=== PATIENT | female | born 1950 | race Caucasian/White ===

== ENCOUNTER → 2023-04-08 14:38 | Outpatient (REF) | payer OTHER, SELFPAY | LOC: HWWDC 14:38 | PROVIDERS: ATTENDING PHYSICIAN Family Medicine | DX: Z12.31 Encounter for screening mammogram for malignant neoplasm of breast (principal); M25.562 Pain in left knee | CPT/HCPCS: 73564; 77063; 77067 ==

== ENCOUNTER 2023-11-11 20:54 | Inpatient (IN) | payer MEDICARE, SELFPAY ==
[2023-11-11] VITALS (11 sets, daily range): BP systolic 72–115; BP diastolic 46–90; BMI 41.3
[2023-11-11 16:34] LABS: Glucose - Point of Care 136 mg/dl (70-99)
--- NOTE | 2023-11-11 16:59 | ED.GENMED ---
History of Present Illness
General
Chief Complaint: Change in Mental Status
Source: patient and family
Exam Limitations: none
Time Seen by Provider: 11/11/23 16:52
History of Present Illness
History of Present Illness:
See MDM
Past History
Past History
ED Past Medical History: HTN, Hypercholesterolemia and Other (Cervical cancer)
Social History
Tobacco: Former smoker
Phy Exam
Physical Exam
Physical Exam:
See MDM
Sepsis
Sepsis Screening
Sepsis Assessment: Severe Sepsis
Sepsis Screening: Hypotension, ARF-Creatinine >2.0 and Sustained Hypotension-SBP <90,MAP<65, or SBP decrease 40mmHg or more
Sepsis Screen
Sepsis Screen: Severe Sepsis
Date: 11/11/23
Time: 16:09
Course
Orders/Labs/Results
Orders:
Orders
11/11/23 16:57
0.9% Sodium Chloride 1000 ml [Nss] 1,000 ml IV BOLUS
Ondansetron Injectable [Zofran] 4 mg IV NOW STA
11/11/23 16:58
CT Head W/o Iv Contrast Urgent
Comment:
Reason For Exam: altered
11/11/23 16:59
TSH Reflex To Free T4 Urgent
11/11/23 17:12
Alcohol Urgent
Complete Blood Count/With Diff Urgent
Comprehensive Metabolic Panel Urgent
Lactic Acid Q4H
Comment: CANCEL 2nd LACTIC ACID IF 1st LACTIC ACID IS LESS THAN 2
11/11/23 18:04
Urinalysis Reflex To Culture Urgent
Date Specimen was Collected: 11/11/23
Time Specimen was Collected: 18:03
Urine Microscopic Reflex Cult Urgent
Urine Culture Urgent
HERMAN Source: U
Specimen Description:
Date Specimen was Collected: 11/11/23
Time Specimen was Collected: 18:03
11/11/23 19:05
0.9% Sodium Chloride 1000 ml [Nss] 1,000 ml IV BOLUS
LevoFLOXacin 500 MG/100 ML [Levaquin] 500 mg in 100 ml IV NOW
Abnormal Lab Results
11/11/23 11/11/23 11/11/23
16:32 17:12 18:04
WBC 14.0 H 10^3/uL
(4.8-10.8)
Hct 36.7 L %
(37.0-47.0)
RDW 16.0 H %
(11.5-14.5)
MPV 11.0 H fL
(7.4-10.4)
Abs Immat Gran (auto) 0.1 H 10^3/uL
(0-0.05)
Absolute Neuts (auto) 11.0 H 10^3/uL
(1.4-6.5)
Absolute Monos (auto) 1.1 H 10^3/uL
(0.1-0.6)
Immature Gran % 0.8 H %
(0-0.5)
Neutrophils % 78.3 H %
(42.2-75.2)
Lymphocytes % 12.5 L %
(20.5-51.1)
Sodium 132 L mmol/L
(135-145)
Chloride 95 L mmol/L
(98-107)
Carbon Dioxide 15 L mmol/L
(22-30)
BUN 58 H mg/dl
(7-17)
Creatinine 3.4 H mg/dL
(0.6-1.0)
Glucose 145 H mg/dl
(70-99)
AST 68 H U/L
(14-36)
ALT 54 H U/L
(0-35)
Alkaline Phosphatase 344 H U/L
(38-126)
Total Protein 5.9 L g/dl
(6.3-8.2)
Albumin 3.4 L g/dl
(3.5-5.0)
Urine Ketones Trace A
(Negative)
Ur Occult Blood Reflex 4+ A
(Negative)
Leukocyte Esterase Rfl 2+ A
(Negative)
Urine WBC (Reflex) >100 A /HPF
(0-5)
Urine Albumin (Reflex) 2+ A
(Neg - Trace)
POC Glucose 136 H mg/dl
(70-99)
11/11/23 17:12
11/11/23 17:12
Vital Signs
Initial and Last Documented VS:
Initial Vital Signs
Temp Pulse Resp BP Pulse Ox
97.6 F 87 24 96/47 97
11/11/23 16:30 11/11/23 16:30 11/11/23 16:30 11/11/23 16:30 11/11/23 16:30
Last Documented Vital Signs
Temp Pulse Resp BP Pulse Ox
97.6 F 82 18 72/57 98
11/11/23 16:30 11/11/23 18:30 11/11/23 18:30 11/11/23 18:00 11/11/23 18:30
MDM/Problems Addressed
Differential Diagnosis Includes:
HPI and MDM Narrative:
73-year-old female presenting for evaluation of altered mental status. Apparently, this has progressed over the past week. When she arrived, patient is lying in bed with her mouth open and eyes closed. The initial triage note indicated that the
patient will keep her eye open. When I spoke to the patient, she is able to keep her eyes open and respond to questions appropriately. She is clinically dehydrated. Her medicines include gabapentin and lorazepam but she denies overdose. Daughter
at bedside states this is abnormal behavior for her. Will obtain CT head and will obtain basic blood work and urinalysis. Will provide IV fluids
Physical exam
General: Fatigue, sleepy
HEENT: protecting airway. Dry mucous membranes
Neck: supple
CV: No evidence of cyanosis. Regular rate and rhythm. Lungs clear
Resp: No accessory muscle use
Abd: Non-distended
Extremities: No deformities
Neuro: alert. Sleepy but answering questions appropriately. Moving all 4 extremities. No aphasia
Psych: Normal affect
Skin: Intact
Problems Addressed including Acute and Chronic Conditions affecting care:
1. Altered mental status
Acuity: acute
Prognosis: stable
Details: Will obtain CT head and basic blood work including urinalysis
2. Dehydration
Acuity: acute
Prognosis: stable
Details: Will give IV fluids
3. UTI
Acuity: acute
Prognosis: unstable
Details: Will start IV Levaquin
Updates
Blood pressure remains to be hypotensive. Will continue IV fluids with concern for severe sepsis. Patient placed on 30 cc/kg of IV fluids. Urine appears to be infected. Patient started on Levaquin
Differential Diagnosis (but not limited to): Stroke, dehydration, UTI
Testing considered: Chest x-ray
Drug therapy (if applicable): OTC meds, please see d/c instruction regarding Rx drugs
Amount and/or Complexity of Data Reviewed
Clinical info obtained from: Patient. Daughter at bedside indicating worsening symptoms for the past week
External data reviewed: N/A
Labs I independently reviewed (but not limited to): Elevated creatinine
Radiology: The CT scan was personally and independently reviewed. In addition, official CT report reviewed.
Pulse Ox: not hypoxic
EKG independently reviewed: N/A
Assistant Professor Of Nursing: N/A
Critical Care: the high probability of a clinically significant, sudden or life threatening deterioration of the cardiovascular system(s) required my full and direct attention, intervention and personal management. The aggregate critical care time
was 35 minutes. This time is in addition to time spent performing reported procedures but includes the following:
[x] Data Review and interpretation
[x] Patient assessment and monitoring of vital signs
[x] Documentation
[x] Medication orders and management
Risk of Complication:
Social Determinants of health: Good social support
Discussed with other providers: Hospitalist
Escalation of Care includes Admit/Obs: Given the altered mental status and concern for sepsis, will start antibiotics and admit
Occasional wrong word or 'sound a like' substitutions may have occurred due to the inherent limitations of voice recognition software. Read the chart carefully and recognize, using context, where substitutions have occurred.
*Critical Care Note
Total Time (30-74mins, 75-104mins- exclusive of procedures): 35 min
ED Attending Note
-
Portions of this chart may have been created with voice recognition software.� Occasional wrong word or��sound alike� substitutions may have occurred due to the inherent limitations of voice recognition software.
Discharge Plan
Departure
Patient Disposition: Admit
Date of Disposition: 11/11/23
Time of Disposition: 19:18
Admit to: IMU
Presentation/result/management discussed w/ accepting MD/DO: Hospitalist
Discharge Problem:
Sepsis
Prescriptions:
No Action
ibuprofen [Advil Liqui-Gel] 200 mg Capsule
400 mg PO Q6HPRN PRN (Reason: mild pain)
valacyclovir 500 mg Tablet
500 mg PO DAILY
lorazepam 0.5 mg Tablet
0.5 mg PO BIDPRN PRN (Reason: anxiety)
gabapentin 300 mg Capsule
300 mg PO TIDPRN PRN (Reason: moderate pain)
Patient Comments:
11/11/23: Patient has old bottle from 2021 that she used recently, per family.
omeprazole 20 mg Capsule,Delayed Release(Dr/Ec)
20 mg PO DAILY
albuterol sulfate 90 mcg/actuation Hfa Aerosol Inhaler
2 puff INHALATION R Q6HPRN PRN (Reason: sob)
ezetimibe 10 mg Tablet
10 mg PO DAILY
rosuvastatin 10 mg Tablet
10 mg PO DAILY
duloxetine 60 mg Capsule,Delayed Release(Dr/Ec)
60 mg PO DAILY
amlodipine-olmesartan 5-40 mg Tablet
1 tab PO DAILY
Referrals:
UNKNOWN,NO INTERVIEW [Family Provider] -
Interventions
Interventions:
*Risk Screen - Suicide Last Done: 11/11/23 17:21
*General Assessment Last Done: 11/11/23 17:21
*Neglect/Abuse Screening Last Done: 11/11/23 17:21
ED- Fall Risk Assessment Last Done: 11/11/23 17:17
*ED COVID-19 Vaccine History Last Done: 11/11/23 17:21
ED- Pulmonary Assessment Last Done: 11/11/23 17:17
ED- Neurological Assessment Last Done: 11/11/23 18:29
ED- Cardiac Assessment Last Done: 11/11/23 17:17
ED Swallowing Screen Last Done: 11/11/23 18:30
Discharge Date and Time
Print Language: MONGOLIAN
[2023-11-11] MEDS: NSS 1000 IV ×3 (17:09→21:12)
[2023-11-11] MEDS: ZOFRAN 4 MG IV (17:10)
[2023-11-11 17:26] LABS: % Basophils 0.5 % (0-2); % Eosinophils 0.3 % (0-6); % Immature Granulocytes 0.8 % (0-0.5); % Lymphocytes 12.5 % (20.5-51.1); % Monocytes 7.6 % (1.7-9.3); % Neutrophils 78.3 % (42.2-75.2); Absolute Basophils 0.1 10^3/uL (0-0.2); Absolute Immature Granulocytes 0.1 10^3/uL (0-0.05); Absolute Lymphocytes 1.8 10^3/uL (1.2-3.4); Absolute Monocytes 1.1 10^3/uL (0.1-0.6); Hematocrit 36.7 % (37.0-47.0); Hemoglobin 12.7 g/dL (12.0-16.0); Mean Corp Hgb Conc. 34.6 g/dL (33.0-37.0); Mean Corpuscular Hgb 29.6 pg (27.0-31.0); Mean Corpuscular Volume 85.5 fL (81.0-99.0); Nucleated Red Blood Cells % 0 %; Platelet Count 239 10^3/uL (130-400); Red Blood Cell Count 4.29 10^6/uL (4.20-5.40)
[2023-11-11 17:35] LABS: ALT (SGPT) 54 U/L (0-35); AST (SGOT) 68 U/L (14-36); Albumin 3.4 g/dl (3.5-5.0); Alkaline Phosphatase 344 U/L (38-126); Blood Urea Nitrogen 58 mg/dl (7-17); Calcium 8.6 mg/dl (8.4-10.2); Carbon Dioxide 15 mmol/L (22-30); Chloride 95 mmol/L (98-107); Glucose 145 mg/dl (70-99); Lactic Acid 1.9 mmol/L (0.7-2.0); Potassium 4.2 mmol/L (3.5-5.1); Sodium 132 mmol/L (135-145); Total Bilirubin 0.8 mg/dl (0.2-1.3); Total Protein 5.9 g/dl (6.3-8.2); eGFR 13.78
[2023-11-11 17:38] LABS: Alcohol None Detected
[2023-11-11 18:14] LABS: Urine Albumin 2+ (Neg - Trace); Urine Bilirubin Negative (Negative); Urine Character Very Cloudy (Clear); Urine Color Yellow; Urine Glucose Negative (Negative); Urine Ketone Trace (Negative); Urine Leukocyte 2+ (Negative); Urine Nitrite Negative (Negative); Urine Occult Blood 4+ (Negative); Urine Specific Gravity 1.015 (<1.030); Urine Urobilinogen 1+ (Neg - 1+)
[2023-11-11 18:46] LABS: Urine White Cell >100 /HPF (0-5)
[2023-11-11] MEDS: LEVAQUIN 100 IV (19:08)
--- NOTE | 2023-11-11 19:19 | HPS.HSE ---
Family Physician
-
Family Physician: NO INTERVIEW UNKNOWN
Chief Complaint
-
Altered mental status
History of Present Illness
This is a 73-year-old female presenting for evaluation of altered mental status.
Patient apparently had GI symptoms last week. She reports nausea vomiting and occasional diarrhea weight bilateral upper quadrant abdominal discomfort. She was seen by physician and told she had gastroenteritis which will improve in a few days.
She was told to hydrate with electrolyte containing fluids. She was able to tolerate fluids but she was not eating a regular diet. She apparently was in the state of health for the next 4 days. However this a.m. the patient arose and was
confused. She was making phone calls that were meaningless. And apparently she had a fall but she does not describe exactly how. She hit the side of her head on a bedpost. She reports ongoing incontinence for about 1 week. She denies dysuria.
She denies flank pain. She reports chills but denies any fevers. She complained of some shortness of breath but denies any cough.
She continues to take her usual medications including 400 mg of ibuprofen 4 times a day, gabapentin and lorazepam. She denies any antihypertensive use. Last use of alcohol was over 1 week ago. She usually drinks about 3 drinks of alcohol daily.
She denies any tobacco use.
In the emergency department the patient was afebrile, she was hypotensive with blood pressure of 72/57, pulse 82 respiratory rate of 18.
CT of the head was negative.
WBC was 14,000 with normal hemoglobin and platelet count. Chemistry is notable for a sodium of 132, bicarb of 15, BUN of 58 and a creatinine of 3.4. LFTs with mild abnormalities of AST 68 ALT 54 and alk phos 342. Normal bilirubin. Lactic acid is
1.9. Urinalysis was positive for pyuria bacteriuria
Medical History
Past Medical History
Past Medical History: Reports Asthma, GERD and Psychiatric
Additional Past Medical History:
Liver hemangioma
Past Surgical History: Reports None
Social History
Tobacco: Non-smoker
Alcohol: Daily
Drug: None
Personal:
Living: With Family
Employment: Not Employed
Family History
Family History: Not pertinent
Allergies / Home Medications
Allergies reflects when Allergies were last updated in [facility].
Home Medications with original date entered in [facility]
Allergy/Medication List:
Allergies
Allergy/AdvReac Type Severity Reaction Status Date / Time
No Known Allergies Allergy Verified 11/11/23 16:50
Home Medications
albuterol sulfate 90 mcg/actuation aerosol inhaler 2 puff inhalation R Q6HPRN PRN sob 11/11/23
amlodipine 5 mg-olmesartan 40 mg tablet 1 tab PO DAILY 11/11/23
duloxetine 60 mg capsule,delayed release 60 mg PO DAILY 11/11/23
ezetimibe 10 mg tablet 10 mg PO DAILY 11/11/23
gabapentin 300 mg capsule 300 mg PO TIDPRN PRN moderate pain 11/11/23
ibuprofen 200 mg capsule (Advil Liqui-Gel) 400 mg PO Q6HPRN PRN mild pain 11/11/23
lorazepam 0.5 mg tablet 0.5 mg PO BIDPRN PRN anxiety 11/11/23
omeprazole 20 mg capsule,delayed release 20 mg PO DAILY 11/11/23
rosuvastatin 10 mg tablet 10 mg PO DAILY 11/11/23
valacyclovir 500 mg tablet 500 mg PO DAILY 11/11/23
Review of Systems
-
History Source: Patient and Family
Constitutional: Reports Fatigue and Sleep Disturbance
EENT: Reports No Symptoms
Respiratory: Reports No Symptoms
Cardiac: Reports No Symptoms
Abdomen/GI: Reports Abdominal Pain and Nausea
: Reports Incontinence
Musculoskeletal: Reports No Symptoms
Skin: Reports No Symptoms
Neurological: Reports Weakness
Endocrine: Reports No Symptoms
Hematologic/Lymphatic: Reports No Symptoms
Psych: Reports No Symptoms
Physical Exam
Vital Signs
Vital Signs
Temp Pulse Resp BP Pulse Ox
97.6 F 82 18 72/57 98
11/11/23 16:30 11/11/23 18:30 11/11/23 18:30 11/11/23 18:00 11/11/23 18:30
Physical Exam
General: No Apparent Distress
HEENT: NormoCephalic, Anicteric, Moist mucous membranes, Atraumatic and PERRLA
Respiratory: Clear
Cardiac: S1/S2 and Regular Rhythm
Breast: Deferred by me
GI: Soft, Non Distended, Normal Bowel Sounds and Tender
Rectal: Deferred by Provider
Genito-urinary: Deferred by me
Musculoskeletal: No Clubbing, No Cyanosis and No Edema
Skin: Warm
Neuro: AO x 3
Hematologic/Lymphatic: No Lymphadenopathy
Psych: Calm
Laboratory Results
-
11/11/23 17:12
11/11/23 17:12
Laboratory Results
Lactic Acid Cancelled 11/11/23 21:00
Total Bilirubin 0.8 mg/dl (0.2-1.3) 11/11/23 17:12
AST 68 U/L (14-36) H 11/11/23 17:12
ALT 54 U/L (0-35) H 11/11/23 17:12
Alkaline Phosphatase 344 U/L (38-126) H 11/11/23 17:12
Data Reviewed
-
CT Scan: Report Reviewed by me
Medical Tests (Nuc Med, Echo, EKG etc): Report Reviewed by me
Lab Data: Labs Reviewed by me
Old Records: Reviewed
Impression/Plan
-
IMPRESSION:
73-year-old with past medical history of asthma, hyperlipidemia, chronic pain presents to the emergency department after a prodromal gastrointestinal illness with altered mental status and hypotension. Had urinary frequency. Patient was found to
have a positive UA and leukocytosis. IV acid was normal. She was hypotensive to 70 systolic. She is awake alert and oriented x 3. Exam was nonfocal. CT of the head was negative.
PLAN:
Sepsis -patient with mixture of urosepsis unlikely recent dehydration. +u/a, leukocytosis and AMS. Responding to boluses of IV fluids.
- admit to imu
- continue iv fluids
- pressors to keep MAP > 65
- blood cultures, urine cultures
- check sepsis procal
- iv ceftriaxone
KERRI - Cr 3.4. Unknown baseline but no known prior h/o CKD. No oliguria or obstruction. BUN/Cr < 20. Hypotensive and on NSAIDs. High chance of ATN
- IV fluids, keep MAP > 65
- hold gabapentin
- hold nsaids
- renal u/s
- consider Nephrology consult if persistently elevated Cr.
Transaminitis - H/O large liver hemangioma with chronic abdominal pain. No known parenchymal liver disease
- abd u/s to eval stones, liver parenchyma and ascites
Pain control and antiemetics
DVT PPX - heparin sq
Code Status - Full Code
[2023-11-11] MEDS: DILAUDID 0.25 MG IV (21:13)
--- NOTE | 2023-11-11 22:12 | PTCARENOTE ---
Patient arrived to room 3352 w/ ED RN. 1L bolus infusing. Jane, daughter, at bedside assisting with admission info. cell phone# [phone] if needed. CHG done. Left side of abd with MASD. Right hip with purple bruise that is hard with small
abrasion. cleansed perineum and placed purewick. Pt had a fall earlier today per daughter. BPs improving, 115/90. Pt drowsy and confused. Recently received IV dilaudid for abd pain. Denies any pain at this time. Meds sent home. Oriented to room and
use of the call chávez. Pt able to drink some water w/o issues. Bed alarm set for safety. Call chávez left within reach.
[2023-11-11] MEDS: LR 1000 IV (22:30)
[2023-11-11] MEDS: ROCEPHIN 1000 MG IV (22:31)
[2023-11-11] MEDS: STERILE WATER FOR INJECTION 10 ML IV (22:31)
[2023-11-11] MEDS: FLUSH (NSS) 10 FLUSH IV ×4 (22:34→22:35)
[2023-11-11] MEDS: ATIVAN 0.5 MG PO (22:58)
--- NOTE | 2023-11-11 23:04 | PTCARENOTE ---
Patient started taking off gown, tele leads, and pulling at IV line. Pt confused and yelling for Tyrese and shouted 'who are you people'. Re-oriented pt to time, place and situation. Pt states 'I am not in the hospital' and continues to take off tele
leads. Pt attempting to sit up and put leg on side of bed. Pt made aware we are here to help her and if she doesn't listen she will be restrained. Pt continued to be defiant. Bilateral wrist restraints placed. PRN Ativan given. Pt made aware she
needs to calm down before we can take off the restraints. Pt stated 'I will take a nap now'. NICHOLAS Das made aware of the entire situation.
[2023-11-11] MEDS: HEPARIN 5000 UNITS SC (23:22)
[2023-11-12] VITALS (12 sets, daily range): BP systolic 90–129; BP diastolic 54–76; BMI 41.4
[2023-11-12 00:10] LABS: Blood Urea Nitrogen 58 mg/dl (7-17); Calcium 7.3 mg/dl (8.4-10.2); Carbon Dioxide 15 mmol/L (22-30); Chloride 100 mmol/L (98-107); Estimated Creatinine Clearance 18 ml/min; Glucose 94 mg/dl (70-99); Potassium 3.9 mmol/L (3.5-5.1); Sodium 134 mmol/L (135-145); eGFR 16.68
--- NOTE | 2023-11-12 01:32 | PTCARENOTE ---
Patient calling out for Williams (significant other). Bilateral wrist restraints remain in place, Q2 hr checks. Pt re-oriented again. Pt denies being in the hospital and says she wants to go home. Med sitter placed at bedside for extra safety
precaution.
[2023-11-12 04:41] LABS: Hematocrit 30.5 % (37.0-47.0); Hemoglobin 10.4 g/dL (12.0-16.0); Mean Corp Hgb Conc. 34.1 g/dL (33.0-37.0); Mean Corpuscular Hgb 29.6 pg (27.0-31.0); Mean Corpuscular Volume 86.9 fL (81.0-99.0); Mean Platelet Volume 10.6 fL (7.4-10.4); Platelet Count 215 10^3/uL (130-400); Red Blood Cell Count 3.51 10^6/uL (4.20-5.40); Red Cell Dist. Width 16.1 % (11.5-14.5); White Blood Cell Count 12.6 10^3/uL (4.8-10.8)
[2023-11-12 05:22] LABS: Cortisol, Random 24.4 ug/dl
[2023-11-12 05:23] LABS: ALT (SGPT) 44 U/L (0-35); AST (SGOT) 47 U/L (14-36); Albumin 2.7 g/dl (3.5-5.0); Alkaline Phosphatase 240 U/L (38-126); Blood Urea Nitrogen 56 mg/dl (7-17); Calcium 7.2 mg/dl (8.4-10.2); Carbon Dioxide 14 mmol/L (22-30); Chloride 100 mmol/L (98-107); Estimated Creatinine Clearance 20 ml/min; Glucose 86 mg/dl (70-99); Potassium 3.8 mmol/L (3.5-5.1); Sodium 134 mmol/L (135-145); Total Bilirubin 0.5 mg/dl (0.2-1.3); Total Protein 5.2 g/dl (6.3-8.2); eGFR 18.18
--- NOTE | 2023-11-12 05:42 | PTCARENOTE ---
Critical lab: C02 14. Reported to NICHOLAS Bean
--- NOTE | 2023-11-12 07:39 | W.PN.HOSP.TC ---
Today's Communication/Plan
-
see A/P
Assessment / Plan
Assessment / Plan
HPI: 73-year-old with past medical history of asthma, hyperlipidemia, chronic pain presented to the emergency department after a prodromal gastrointestinal illness with altered mental status and hypotension. Also had urinary frequency. Patient was
found to have a positive UA and leukocytosis. She was hypotensive to 70 systolic.
Patient apparently had GI symptoms last week. She was seen by physician and told she had gastroenteritis which will improve in a few days. She was told to hydrate with electrolyte containing fluids. She was able to tolerate fluids but she was not
eating a regular diet. She apparently was in the state of health for the next 4 days. However on DOA, the patient arose and was confused. She was making phone calls that were meaningless. And apparently she had a fall but she does not describe
exactly how. She hit the side of her head on a bedpost. She reports ongoing incontinence for about 1 week.
She continues to take her usual medications including 400 mg of ibuprofen 4 times a day, gabapentin and lorazepam. She denies any antihypertensive use. 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 She usually drinks about 3 drinks of alcohol daily.
A/P:
# Severe Sepsis POA likely 2/2 UTI
# Acute metabolic encephalopathy 2/2 UTI
BP responded to IVF boluses, improved from 70/50 to 100/60, cont maintenance IVF with bicarb
Follow urine culture
Continue iv ceftriaxone
Of note, CT head from admission No acute intracranial abnormality.
PT OT eval when able
# KERRI likely prerenal
# anion gap Metabolic acidosis
Cr 3.4 on admission, today 2.7, Unknown baseline but no known prior h/o CKD.
Cont IVF with bicarb
avoid NSAIDs.
hold gabapentin
Abd US ordered
Consider Nephrology consult if persistently elevated Cr.
# Transaminitis, suspect reactive
# H/O large liver hemangioma with chronic abdominal pain.
No known parenchymal liver disease
Abd US ordered, follow up
# Pain control and antiemetics
DVT PPX - heparin sq
Code Status - Full Code
DW RN
updated pt's SO Boone (only contact listed) on the phone
total time 51 min
Anticipated Discharge: > 48 hours
Subjective/Interval History
-
Date of Service: November 12, 2023
Objective Data
-
Labs:
Laboratory Results
11/11/23 11/12/23
23:24 04:25
WBC 12.6 H
Hgb 10.4 L
Hct 30.5 L
Plt Count 215
Sodium 134 L 134 L
Potassium 3.9 3.8
Chloride 100 100
Carbon Dioxide 15 L 14 L*
BUN 58 H 56 H
Creatinine 2.9 H 2.7 H
Glucose 94 86
Calcium 7.3 L 7.2 L
Total Bilirubin 0.5
AST 47 H
ALT 44 H
Alkaline Phosphatase 240 H
Vital Signs:
Vital Signs
Temp Pulse Resp BP Pulse Ox
36.4 C 93 17 108/59 98
11/12/23 04:21 11/12/23 06:02 11/12/23 06:02 11/12/23 06:02 11/12/23 06:02
I&O
11/11/23 11/12/23 11/13/23
06:59 06:59 06:59
Intake Total 401 / 401
Output Total 125 / 125
Balance 276 / 276
Review of Systems
-
Unable to obtain full review of systems at this time due to: Acuity
Physical Exam
-
General: Well Developed, Well Nourished, No Apparent Distress, Comfortable, Conversant, Morbidly Obese and Other (in restraints); Negative Respiratory Distress
HEENT: Normocephalic, Atraumatic, Nose Appears Normal and Ears Appear Normal; Negative Oxygen
Respiratory: Clear to Auscultation and Non Labored Respirations; Negative Accessory Resp Muscle Use
Cardiac: Regular Rhythm and S1/S2
GI: Soft, Nontender, Nondistended and Normal Bowel Sounds
Skin: Warm and Dry
Neuro: Awake
Psych: Calm and Confused
Data Reviewed
-
CT Scan: Report Reviewed by me
Labs: Labs Reviewed by me
[2023-11-12] MEDS: CALCIUM GLUCONATE 100 IV (08:18)
--- NOTE | 2023-11-12 08:43 | PTCARENOTE ---
Assumed care of pt from night RN, pt oriented to self only, agitated and combative at times. Refusing all PO medications at this time. Unable to obtain Covid or Flu swab as pt began thrashing around and attempting to kick staff. Attempted to
redirect without success. B/L soft restraints remain in place for pt safety. Calcium Gluconate infusing at this time as well as IVF. Repositioned in bed. NPO at this time for Abdominal U/S. Will continue to monitor through shift.
[2023-11-12] MEDS: HEPARIN SC (09:05)
[2023-11-12] MEDS: CYMBALTA DELAYED RELEASE PO (09:05)
[2023-11-12] MEDS: PROTONIX PO (09:06)
[2023-11-12] MEDS: SODIUM BICARBONATE 1075 MEQ IV ×2 (09:08→20:39)
[2023-11-12 09:57] LABS: COVID-19 Antigen Negative (Negative)
--- NOTE | 2023-11-12 10:05 | PTCARENOTE ---
Pt daughter at bedside, pt agreeable to Covid and Flu swabs. Samples obtained and sent to lab. Results are negative for both.
[2023-11-12] MEDS: DESENEX/MITRAZOL/ZEASORB 1 APPLIC TOPICAL ×2 (11:08→23:02)
--- NOTE | 2023-11-12 15:08 | CM ---
manager employee benefits reviewed patient's chart, patient is currently in restraints and has med sitter. Patient lives with her significant other Boone (Tyrese) in a 2 story home with 3 steps to enter, patient is independent with adl's and ambulation, no dme.
Pharmacy: [facility] in [place]
Plan; Home when stable, will follow for any needs that may develop.
[2023-11-12] MEDS: HEPARIN 5000 UNITS SC ×2 (16:50→23:35)
[2023-11-12] MEDS: TYLENOL 650 MG PO (20:28)
[2023-11-12 20:56] LABS: Hepatitis C Antibody Negative (Negative)
[2023-11-12] MEDS: FLUSH (NSS) 1 FLUSH IV ×3 (23:02→23:18)
[2023-11-12] MEDS: ROCEPHIN 1000 MG IV (23:04)
[2023-11-12] MEDS: STERILE WATER FOR INJECTION 10 ML IV (23:04)
[2023-11-12] MEDS: ATIVAN 0.5 MG PO (23:06)
[2023-11-12] MEDS: ROXICODONE 5 MG PO (23:44)
[2023-11-13] VITALS (11 sets, daily range): BP systolic 106–126; BP diastolic 53–73; PULSE 94–99; O2SAT 96; BMI 41.3
--- NOTE | 2023-11-13 01:22 | PTCARENOTE ---
Assumed care of patient overnight. Received report from dayshift RN. Pt oriented to time, place, and person but forgetful at times. Pt can be agitated at times. Pt normal sinus on tele. Respirations even and unlabored, 96% on room air. Pt requests
PRN ativan for anxiety, and Leann for severe pain. Pt reports having 10/10 pain to RUQ. Pt is now sleeping and appears to be comfortable with no more complaints of pain. Pt has purewick in and voiding appropriately. B/L soft wrist restraints off the
patient currently, pt is not pulling out tube/lines. Turning pt frequently. Call chávez within reach. Medsitter at bedside.
[2023-11-13 04:31] LABS: Hematocrit 26.9 % (37.0-47.0); Hemoglobin 9.4 g/dL (12.0-16.0); Mean Corp Hgb Conc. 34.9 g/dL (33.0-37.0); Mean Corpuscular Hgb 29.6 pg (27.0-31.0); Mean Corpuscular Volume 84.6 fL (81.0-99.0); Mean Platelet Volume 10.3 fL (7.4-10.4); Platelet Count 240 10^3/uL (130-400); Red Blood Cell Count 3.18 10^6/uL (4.20-5.40); Red Cell Dist. Width 16.3 % (11.5-14.5); White Blood Cell Count 11.7 10^3/uL (4.8-10.8)
[2023-11-13 04:56] LABS: ALT (SGPT) 42 U/L (0-35); AST (SGOT) 42 U/L (14-36); Albumin 2.6 g/dl (3.5-5.0); Alkaline Phosphatase 261 U/L (38-126); Blood Urea Nitrogen 42 mg/dl (7-17); Calcium 7.8 mg/dl (8.4-10.2); Carbon Dioxide 18 mmol/L (22-30); Chloride 104 mmol/L (98-107); Estimated Creatinine Clearance 31 ml/min; Glucose 86 mg/dl (70-99); Potassium 3.5 mmol/L (3.5-5.1); Sodium 139 mmol/L (135-145); Total Bilirubin 0.5 mg/dl (0.2-1.3); Total Protein 4.9 g/dl (6.3-8.2); eGFR 31.66
[2023-11-13 05:05] LABS: Magnesium 2.3 mg/dl (1.6-2.3)
[2023-11-13] MEDS: SODIUM BICARBONATE IV (06:11)
[2023-11-13] MEDS: DESENEX/MITRAZOL/ZEASORB 1 APPLIC TOPICAL ×2 (08:06→20:30)
[2023-11-13] MEDS: NSS 1000 IV ×2 (08:06→18:33)
[2023-11-13] MEDS: HEPARIN 5000 UNITS SC (08:10)
[2023-11-13] MEDS: PROTONIX 40 MG PO (08:10)
[2023-11-13] MEDS: CYMBALTA DELAYED RELEASE 60 MG PO (08:10)
--- NOTE | 2023-11-13 08:19 | W.PN.HOSP.TC ---
Today's Communication/Plan
-
see A/P
Assessment / Plan
Assessment / Plan
HPI: 73-year-old with past medical history of asthma, hyperlipidemia, chronic pain presented to the emergency department after a prodromal gastrointestinal illness with altered mental status and hypotension. Also had urinary frequency. Patient was
found to have a positive UA and leukocytosis. She was hypotensive to 70 systolic.
Patient apparently had GI symptoms last week. She was seen by physician and told she had gastroenteritis which will improve in a few days. She was told to hydrate with electrolyte containing fluids. She was able to tolerate fluids but she was not
eating a regular diet. She apparently was in the state of health for the next 4 days. However on DOA, the patient arose and was confused. She was making phone calls that were meaningless. And apparently she had a fall but she does not describe
exactly how. She hit the side of her head on a bedpost. She reports ongoing incontinence for about 1 week.
She continues to take her usual medications including 400 mg of ibuprofen 4 times a day, gabapentin and lorazepam. She denies any antihypertensive use. 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 She usually drinks about 3 drinks of alcohol daily.
A/P:
# Severe Sepsis POA likely 2/2 UTI
# Acute metabolic encephalopathy 2/2 UTI
BP responded to IVF boluses, improved from 70/50 to 100/60, cont maintenance IVF with bicarb
urine culture positive for E coli
deescalate ceftriaxone to Ancef
Of note, CT head from admission No acute intracranial abnormality.
MS improved, off restraint. She is AOX3
PT OT eval when able
# KERRI likely prerenal, improving
# anion gap Metabolic acidosis, improving
Cr 3.4 on admission, today 1.7, unknown baseline but no known prior h/o CKD.
Cont IVF with bicarb
avoid NSAIDs.
hold gabapentin
Abd US: No hydronephrosis.
# Hypokalemia
replete K
# Transaminitis, suspect reactive
# H/O large liver hemangioma with chronic abdominal pain.
No known parenchymal liver disease
Abd US noted increased echogenicity in the liver, compatible with underlying hepatocellular disease, which most commonly relates to fatty infiltration of the liver
# Pain control and antiemetics
DVT PPX - heparin sq
Code Status - Full Code
DW RN
updated pt's SO Boone (only contact listed) on the phone
Anticipated Discharge: 24 - 48 hours
Subjective/Interval History
-
Date of Service: November 13, 2023
Objective Data
-
Labs:
Laboratory Results
11/13/23
04:09
WBC 11.7 H
Hgb 9.4 L
Hct 26.9 L
Plt Count 240
Sodium 139
Potassium 3.5
Chloride 104
Carbon Dioxide 18 L
BUN 42 H
Creatinine 1.7 H
Glucose 86
Calcium 7.8 L
Total Bilirubin 0.5
AST 42 H
ALT 42 H
Alkaline Phosphatase 261 H
Vital Signs:
Vital Signs
Temp Pulse Resp BP Pulse Ox
36.7 C 95 14 107/62 95
11/13/23 04:01 11/13/23 06:00 11/13/23 06:00 11/13/23 06:00 11/13/23 06:00
I&O
11/12/23 11/13/23 11/14/23
06:59 06:59 06:59
Intake Total 401 / 401 2665 / 2665
Output Total 125 / 125 2425 / 2425
Balance 276 / 276 240 / 240
Review of Systems
-
All other systems: Reviewed and negative
Physical Exam
-
General: Well Developed, Well Nourished, No Apparent Distress, Comfortable, Conversant and Morbidly Obese; Negative Respiratory Distress
HEENT: Normocephalic, Atraumatic, Nose Appears Normal and Ears Appear Normal; Negative Oxygen
Respiratory: Clear to Auscultation and Non Labored Respirations; Negative Accessory Resp Muscle Use
Cardiac: Regular Rhythm and S1/S2
GI: Soft, Nontender, Nondistended and Normal Bowel Sounds
Skin: Warm and Dry
Neuro: Awake
Psych: Calm and Intact Judgement/Insight
Data Reviewed
-
CT Scan: Report Reviewed by me
Labs: Labs Reviewed by me
[2023-11-13] MEDS: KCL 40 MEQ PO (08:56)
[2023-11-13] MEDS: TYLENOL 650 MG PO (09:17)
[2023-11-13] MEDS: ANCEF 5 IV ×2 (09:18→18:33)
[2023-11-13] MEDS: ROXICODONE 5 MG PO ×3 (12:19→22:35)
--- NOTE | 2023-11-13 16:44 | CM ---
Chart reviewed. Plan was initially home with no needs, however per PT note this afternoon, pt may need SNF vs. home health. Pt on bed alarm.
CM to follow up in AM to clarify d/c plan.
[2023-11-13] MEDS: HEPARIN SC (18:23)
[2023-11-13] MEDS: FLUSH (NSS) IV ×2 (23:52)
[2023-11-14] MEDS: HEPARIN SC ×3 (00:53→16:00)
[2023-11-14] MEDS: ANCEF 5 IV ×2 (03:08→09:46)
[2023-11-14] MEDS: NSS 1000 IV (03:20)
[2023-11-14] MEDS: ROXICODONE 5 MG PO ×5 (03:29→22:00)
[2023-11-14 03:55] VITALS: BP 109/70
[2023-11-14 07:36] VITALS: BP 134/69
[2023-11-14] MEDS: CYMBALTA DELAYED RELEASE 60 MG PO (08:00)
[2023-11-14] MEDS: PROTONIX 40 MG PO (08:00)
[2023-11-14] MEDS: DESENEX/MITRAZOL/ZEASORB 1 APPLIC TOPICAL ×2 (08:02→20:44)
[2023-11-14 08:55] LABS: ALT (SGPT) 38 U/L (0-35); AST (SGOT) 46 U/L (14-36); Albumin 2.6 g/dl (3.5-5.0); Alkaline Phosphatase 291 U/L (38-126); Blood Urea Nitrogen 21 mg/dl (7-17); Calcium 8.7 mg/dl (8.4-10.2); Carbon Dioxide 24 mmol/L (22-30); Chloride 106 mmol/L (98-107); Estimated Creatinine Clearance 53 ml/min; Glucose 95 mg/dl (70-99); Magnesium 1.8 mg/dl (1.6-2.3); Potassium 4.5 mmol/L (3.5-5.1); Sodium 139 mmol/L (135-145); Total Bilirubin 0.4 mg/dl (0.2-1.3); Total Protein 4.9 g/dl (6.3-8.2); eGFR 59.86
[2023-11-14 09:08] LABS: Hematocrit 28.7 % (37.0-47.0); Hemoglobin 9.7 g/dL (12.0-16.0); Mean Corp Hgb Conc. 33.8 g/dL (33.0-37.0); Mean Corpuscular Hgb 30.3 pg (27.0-31.0); Mean Corpuscular Volume 89.7 fL (81.0-99.0); Mean Platelet Volume 10.3 fL (7.4-10.4); Platelet Count 315 10^3/uL (130-400); Red Cell Dist. Width 17.1 % (11.5-14.5); White Blood Cell Count 12.1 10^3/uL (4.8-10.8)
[2023-11-14] MEDS: TYLENOL 650 MG PO ×2 (09:46→18:07)
--- NOTE | 2023-11-14 09:54 | W.PN.HOSP.TC ---
Today's Communication/Plan
-
see A/P
Cont PT eval
Assessment / Plan
Assessment / Plan
HPI: 73-year-old with past medical history of asthma, hyperlipidemia, chronic pain presented to the emergency department after a prodromal gastrointestinal illness with altered mental status and hypotension. Also had urinary frequency. Patient was
found to have a positive UA and leukocytosis. She was hypotensive to 70 systolic.
Patient apparently had GI symptoms last week. She was seen by physician and told she had gastroenteritis which will improve in a few days. She was told to hydrate with electrolyte containing fluids. She was able to tolerate fluids but she was not
eating a regular diet. She apparently was in the state of health for the next 4 days. However on DOA, the patient arose and was confused. She was making phone calls that were meaningless. And apparently she had a fall but she does not describe
exactly how. She hit the side of her head on a bedpost. She reports ongoing incontinence for about 1 week.
She continues to take her usual medications including 400 mg of ibuprofen 4 times a day, gabapentin and lorazepam. She denies any antihypertensive use. 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 She usually drinks about 3 drinks of alcohol daily.
A/P:
# Severe Sepsis POA likely 2/2 UTI
# Acute metabolic encephalopathy 2/2 UTI
BP responded to IVF
urine culture positive for E coli sensitivity reviewed. Deescalate ceftriaxone to Ancef with plan to DC on Keflex
Of note, CT head from admission showed No acute intracranial abnormality.
MS improved, off restraint. She is somewhat AOX3 but lacks insight
# KERRI likely prerenal, resolved
# anion gap Metabolic acidosis, resolved
Cr 3.4 on admission, today 1.0, unknown baseline but no known prior h/o CKD.
s/p IVF with bicarb
avoid NSAIDs.
hold gabapentin
Abd US: No hydronephrosis.
# Hypokalemia
repleted K
# Transaminitis, suspect reactive
# H/O large liver hemangioma with chronic abdominal pain.
No known parenchymal liver disease
Abd US noted increased echogenicity in the liver, compatible with underlying hepatocellular disease, which most commonly relates to fatty infiltration of the liver
Follow LFT with PCP outpt
# Pain control and antiemetics
DVT PPX - heparin sq
Code Status - Full Code
Dispo: SNF vs HH per PT eval. Family feels that pt would most likely want to be discharged home with HH
DW RN
updated pt's JERMAIN Shook.
Also updated pt's daughter Oneida on the phone [phone]
total time spent 51 min
Anticipated Discharge: 24 - 48 hours
Subjective/Interval History
-
Date of Service: November 14, 2023
Objective Data
-
Labs:
Laboratory Results
11/14/23
07:56
WBC 12.1 H
Hgb 9.7 L
Hct 28.7 L
Plt Count 315 D
Sodium 139
Potassium 4.5 D
Chloride 106
Carbon Dioxide 24
BUN 21 H
Creatinine 1.0
Glucose 95
Calcium 8.7
Total Bilirubin 0.4
AST 46 H
ALT 38 H
Alkaline Phosphatase 291 H
Vital Signs:
Vital Signs
Temp Pulse Resp BP Pulse Ox
36.6 C 98 20 134/69 95
11/14/23 07:36 11/14/23 07:36 11/14/23 07:36 11/14/23 07:36 11/14/23 07:36
I&O
11/13/23 11/14/23 11/15/23
06:59 06:59 06:59
Intake Total 2665 / 2665 480 / 480
Output Total 2425 / 2425 700 / 700
Balance 240 / 240 -220 / -220
Review of Systems
-
All other systems: Reviewed and negative
Physical Exam
-
General: Well Developed, Well Nourished, No Apparent Distress, Comfortable, Conversant and Morbidly Obese; Negative Respiratory Distress
HEENT: Normocephalic, Atraumatic, Nose Appears Normal and Ears Appear Normal; Negative Oxygen
Respiratory: Clear to Auscultation and Non Labored Respirations; Negative Accessory Resp Muscle Use
Cardiac: Regular Rhythm and S1/S2
GI: Soft, Nontender, Nondistended and Normal Bowel Sounds
Skin: Warm and Dry
Neuro: Awake
Psych: Calm and Intact Judgement/Insight (somewhat)
Data Reviewed
-
CT Scan: Report Reviewed by me
Labs: Labs Reviewed by me
[2023-11-14 11:32] VITALS: BP 105/57
[2023-11-14 15:53] VITALS: BP 90/77
[2023-11-14] MEDS: ANCEF 10 IV (18:07)
[2023-11-14 19:55] VITALS: BP 104/63
[2023-11-14] MEDS: ATIVAN 0.5 MG PO (20:42)
[2023-11-14 23:19] VITALS: BP 116/63
[2023-11-15] MEDS: HEPARIN SC ×2 (01:09→09:20)
[2023-11-15] MEDS: ANCEF 10 IV ×3 (02:08→17:48)
[2023-11-15] MEDS: HEPARIN 5000 UNITS SC (02:24)
[2023-11-15 03:15] VITALS: BP 122/77
[2023-11-15] MEDS: ROXICODONE 5 MG PO (06:07)
[2023-11-15 07:30] VITALS: BP 133/75
[2023-11-15 07:48] LABS: Hematocrit 27.7 % (37.0-47.0); Hemoglobin 9.2 g/dL (12.0-16.0); Mean Corp Hgb Conc. 33.2 g/dL (33.0-37.0); Mean Corpuscular Hgb 28.8 pg (27.0-31.0); Mean Corpuscular Volume 86.8 fL (81.0-99.0); Platelet Count 356 10^3/uL (130-400); Red Blood Cell Count 3.19 10^6/uL (4.20-5.40); Red Cell Dist. Width 16.8 % (11.5-14.5); White Blood Cell Count 11.8 10^3/uL (4.8-10.8)
[2023-11-15 08:13] LABS: ALT (SGPT) 36 U/L (0-35); AST (SGOT) 51 U/L (14-36); Albumin 2.6 g/dl (3.5-5.0); Alkaline Phosphatase 321 U/L (38-126); Blood Urea Nitrogen 15 mg/dl (7-17); Calcium 9.1 mg/dl (8.4-10.2); Carbon Dioxide 22 mmol/L (22-30); Chloride 105 mmol/L (98-107); Estimated Creatinine Clearance 59 ml/min; Glucose 104 mg/dl (70-99); Magnesium 1.5 mg/dl (1.6-2.3); Sodium 138 mmol/L (135-145); Total Bilirubin 0.4 mg/dl (0.2-1.3); Total Protein 5.1 g/dl (6.3-8.2); eGFR > 60.00
[2023-11-15] MEDS: PROTONIX 40 MG PO (09:19)
[2023-11-15] MEDS: TYLENOL 650 MG PO ×2 (09:19→23:13)
[2023-11-15] MEDS: ATIVAN 0.5 MG PO (09:19)
[2023-11-15] MEDS: CYMBALTA DELAYED RELEASE 60 MG PO (09:19)
[2023-11-15] MEDS: DESENEX/MITRAZOL/ZEASORB 1 APPLIC TOPICAL ×2 (09:20→20:25)
--- NOTE | 2023-11-15 09:22 | W.PN.HOSP.TC ---
Addendum entered and electronically signed by Dina Junior MD 11/15/23 09:49:
pt states that she's on Valtrex for rash of her upper back.
back examined and no rash seen.
Would stop Valtrex for now
Original Note:
Today's Communication/Plan
-
see A/P
Assessment / Plan
Assessment / Plan
HPI: 73-year-old with past medical history of asthma, hyperlipidemia, chronic pain presented to the emergency department after a prodromal gastrointestinal illness with altered mental status and hypotension. Also had urinary frequency. Patient was
found to have a positive UA and leukocytosis. She was hypotensive to 70 systolic.
Patient apparently had GI symptoms last week. She was seen by physician and told she had gastroenteritis which will improve in a few days. She was told to hydrate with electrolyte containing fluids. She was able to tolerate fluids but she was not
eating a regular diet. She apparently was in the state of health for the next 4 days. However on DOA, the patient arose and was confused. She was making phone calls that were meaningless. And apparently she had a fall but she does not describe
exactly how. She hit the side of her head on a bedpost. She reports ongoing incontinence for about 1 week.
She continues to take her usual medications including 400 mg of ibuprofen 4 times a day, gabapentin and lorazepam. She denies any antihypertensive use. 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 She usually drinks about 3 drinks of alcohol daily.
A/P:
# Severe Sepsis POA likely 2/2 UTI
# Acute metabolic encephalopathy 2/2 UTI
BP responded to IVF
urine culture positive for E coli sensitivity reviewed. Deescalated ceftriaxone to Ancef with plan to DC on Keflex
Of note, CT head from admission showed No acute intracranial abnormality.
MS improved, off restraint. She is somewhat AOX3 but lacks insight
# KERRI likely prerenal, resolved
# anion gap Metabolic acidosis, resolved
Cr 3.4 on admission, today 0.9, unknown baseline but no known prior h/o CKD.
s/p IVF with bicarb
ok to resume gabapentin
Abd US: No hydronephrosis.
# Diffuse Abd pain
check Abd XR for constipation vs possible ileus (pt has been on oxycodone)
stop oxycodone for now
cont Tylenol PRN for pain
# Hypokalemia
repleted K
# Transaminitis, suspect reactive
# H/O large liver hemangioma with chronic abdominal pain.
No known parenchymal liver disease
Abd US noted increased echogenicity in the liver, compatible with underlying hepatocellular disease, which most commonly relates to fatty infiltration of the liver. Family aware.
Follow LFT with PCP outpt
# Recent Shingles
Cont FILLER SHAKER Valtrex
DVT PPX - lovenox SQ
Code Status - Full Code
Dispo: SNF
DW RN
DW pt's daughter Oneida at bedside
total time spent 51 min
Anticipated Discharge: 24 - 48 hours
Subjective/Interval History
-
Date of Service: November 15, 2023
Objective Data
-
Labs:
Laboratory Results
11/15/23
07:09
WBC 11.8 H
Hgb 9.2 L
Hct 27.7 L
Plt Count 356
Sodium 138
Potassium 4.0
Chloride 105
Carbon Dioxide 22
BUN 15
Creatinine 0.9
Glucose 104 H
Calcium 9.1
Total Bilirubin 0.4
AST 51 H
ALT 36 H
Alkaline Phosphatase 321 H
Vital Signs:
Vital Signs
Temp Pulse Resp BP Pulse Ox
37.7 C 98 18 133/75 95
11/15/23 07:30 11/15/23 07:30 11/15/23 07:30 11/15/23 07:30 11/15/23 07:30
I&O
11/14/23 11/15/23 11/16/23
06:59 06:59 06:59
Intake Total 480 / 480 2159
Output Total 700 / 700
Balance -220 / -220 2159
Review of Systems
-
Abdomen/GI: Reports Abdominal Pain (diffuse, but R > L)
Physical Exam
-
General: Well Developed, Well Nourished, No Apparent Distress, Comfortable, Conversant and Morbidly Obese; Negative Respiratory Distress
HEENT: Normocephalic, Atraumatic, Nose Appears Normal and Ears Appear Normal; Negative Oxygen
Respiratory: Clear to Auscultation and Non Labored Respirations; Negative Accessory Resp Muscle Use
Cardiac: Regular Rhythm and S1/S2
GI: Soft, Nondistended, Normal Bowel Sounds and Tender (diffusely, but R > L)
Skin: Warm and Dry
Neuro: Awake
Psych: Calm and Intact Judgement/Insight (somewhat)
Data Reviewed
-
CT Scan: Report Reviewed by me
Ultrasound: Report Reviewed by me (Abd US )
Labs: Labs Reviewed by me
--- NOTE | 2023-11-15 11:07 | CM ---
Addendum entered by Ezra Otto 11/15/23 13:49:
Pt's daughter requested to send a referral to [facility]. A referral to [facility] SNF made.
Original Note:
CM following re: discharge planning.
Reviewed pt's chart, met with pt, spoke to pt's partner Boone over the phone and pt's daughter Oneida at bedside [phone]. pt is requested to add her daughter to contact list.
PT and OT evaluations noted - SNF level of care recommended. Both pt and her family are aware, expressed their agreement. A list of SNFs provided, [facility] and [facility]. A referral to above SNFs made. Awaiting for determination.
D/c plan: [facility] or [facility].
CM will follow to assist pt with discharge to a preferred and accepted SNF.
[2023-11-15 11:37] VITALS: BP 127/70
[2023-11-15] MEDS: MOTRIN 400 MG PO ×2 (13:26→20:22)
[2023-11-15 15:30] VITALS: BP 118/69
[2023-11-15] MEDS: LOVENOX 40 MG SC (17:48)
[2023-11-15 19:55] VITALS: BP 124/76
[2023-11-15] MEDS: NEURONTIN 300 MG PO (20:26)
[2023-11-15 23:17] VITALS: BP 131/71
[2023-11-16] MEDS: ANCEF 10 IV ×3 (02:45→16:55)
[2023-11-16] MEDS: MOTRIN 400 MG PO ×3 (02:54→21:30)
[2023-11-16 03:38] VITALS: BP 137/77
[2023-11-16] MEDS: TYLENOL 650 MG PO ×3 (06:46→17:03)
[2023-11-16 07:35] VITALS: BP 135/79
[2023-11-16 08:18] LABS: Hemoglobin 9.4 g/dL (12.0-16.0); Mean Corp Hgb Conc. 33.6 g/dL (33.0-37.0); Mean Corpuscular Volume 89.5 fL (81.0-99.0); Mean Platelet Volume 9.9 fL (7.4-10.4); Platelet Count 360 10^3/uL (130-400); Red Blood Cell Count 3.13 10^6/uL (4.20-5.40); Red Cell Dist. Width 16.8 % (11.5-14.5); White Blood Cell Count 9.4 10^3/uL (4.8-10.8)
[2023-11-16 08:54] LABS: ALT (SGPT) 23 U/L (0-35); AST (SGOT) 37 U/L (14-36); Albumin 2.6 g/dl (3.5-5.0); Alkaline Phosphatase 256 U/L (38-126); Blood Urea Nitrogen 14 mg/dl (7-17); Calcium 9.4 mg/dl (8.4-10.2); Carbon Dioxide 26 mmol/L (22-30); Chloride 107 mmol/L (98-107); Estimated Creatinine Clearance 66 ml/min; Glucose 97 mg/dl (70-99); Potassium 4.4 mmol/L (3.5-5.1); Sodium 142 mmol/L (135-145); Total Bilirubin 0.3 mg/dl (0.2-1.3); eGFR > 60.00
[2023-11-16] MEDS: CYMBALTA DELAYED RELEASE 60 MG PO (09:51)
[2023-11-16] MEDS: BENICAR 40 MG PO (09:51)
[2023-11-16] MEDS: NORVASC 5 MG PO (09:51)
[2023-11-16] MEDS: PROTONIX 40 MG PO (09:51)
[2023-11-16] MEDS: DESENEX/MITRAZOL/ZEASORB 1 APPLIC TOPICAL ×2 (09:58→21:34)
[2023-11-16] MEDS: ATIVAN 0.5 MG PO (10:29)
[2023-11-16 11:28] VITALS: BP 152/72
--- NOTE | 2023-11-16 11:35 | PTCARENOTE ---
Patient c/o of R knee tenderness recalls 'banging it' at unknown time. Unable to raise leg without reports of 10/10 pain. +pulses, RLE warm, no edema, no bruising noted. Tylenol administered, ice applied. Hospitalist aware.
--- NOTE | 2023-11-16 13:58 | W.PN.HOSP.TC ---
Today's Communication/Plan
-
HIDA scan
cont abx
Assessment / Plan
Assessment / Plan
HPI: 73-year-old with past medical history of asthma, hyperlipidemia, chronic pain presented to the emergency department after a prodromal gastrointestinal illness with altered mental status and hypotension. Also had urinary frequency. Patient was
found to have a positive UA and leukocytosis. She was hypotensive to 70 systolic.
A/P:
# Severe Sepsis POA likely 2/2 UTI
# Acute metabolic encephalopathy 2/2 UTI
BP responded to IVF
urine culture positive for E coli sensitivity reviewed. Deescalated ceftriaxone to Ancef with plan to DC on Keflex
Of note, CT head from admission showed No acute intracranial abnormality.
MS improved, off restraint. She is somewhat AOX3 but lacks insight
# KERRI likely prerenal, resolved
# anion gap Metabolic acidosis, resolved
Cr 3.4 on admission, today 0.9, unknown baseline but no known prior h/o CKD.
s/p IVF with bicarb
ok to resume gabapentin
Abd US: No hydronephrosis.
# RUQ tenderness
-RUQ unremarkable for acute pathology
-since high suspicion - ordered HIDA scan; NPO after MN
-cont Tylenol PRN for pain
#Hypokalemia
repleted K
# Transaminitis
# H/O large liver hemangioma with chronic abdominal pain.
No known parenchymal liver disease
Abd US noted increased echogenicity in the liver, compatible with underlying hepatocellular disease, which most commonly relates to fatty infiltration of the liver. Family aware.
Follow LFT with PCP outpatient
HIDA scan as above
# Recent Shingles
Rash resolved
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
DVT PPX - lovenox SQ
Code Status - Full Code
Dispo: SNF
DW RN
DW pt's daughter Oneida at bedside
total time spent 52 min
Anticipated Discharge: 24 - 48 hours
Subjective/Interval History
-
Date of Service: November 16, 2023
Right upper quadrant tenderness is present
Objective Data
-
Labs:
Laboratory Results
11/16/23
07:37
WBC 9.4
Hgb 9.4 L
Hct 28.0 L
Plt Count 360
Sodium 142
Potassium 4.4
Chloride 107
Carbon Dioxide 26
BUN 14
Creatinine 0.8
Glucose 97
Calcium 9.4
Total Bilirubin 0.3
AST 37 H
ALT 23
Alkaline Phosphatase 256 H
Vital Signs:
Vital Signs
Temp Pulse Resp BP Pulse Ox
97.8 F 96 18 152/72 99
11/16/23 11:28 11/16/23 11:28 11/16/23 11:28 11/16/23 11:28 11/16/23 11:28
I&O
11/15/23 11/16/23 11/17/23
06:59 06:59 06:59
Intake Total 2160 / 2160 960 / 960
Balance 2160 / 2160 960 / 960
Review of Systems
-
History Source: Patient
All other systems: Not reviewed unless documented
Physical Exam
-
General: Well Developed, Well Nourished, No Apparent Distress, Comfortable, Conversant and Morbidly Obese; Negative Respiratory Distress
HEENT: Normocephalic, Atraumatic, Nose Appears Normal and Ears Appear Normal; Negative Oxygen
Respiratory: Clear to Auscultation and Non Labored Respirations; Negative Accessory Resp Muscle Use
Cardiac: Regular Rhythm and S1/S2
GI: Soft, Nondistended, Normal Bowel Sounds and Tender (ruq tenderness)
Skin: Warm and Dry
Neuro: Awake, Alert, Oriented and AO x 3
Psych: Calm and Intact Judgement/Insight (somewhat)
Data Reviewed
-
Diagnostic Radiology: Image personally visualized and interpreted and Report Reviewed by me
Ultrasound: Image personally visualized and interpreted
Labs: Labs Reviewed by me
[2023-11-16 15:33] VITALS: BP 116/71
--- NOTE | 2023-11-16 16:33 | CM ---
CM continues to follow for discharge planning needs. Hermelinda was evaluated by PT, but has not been able to participate since the initial evaluation. She is sleeping a lot and somewhat confused at times.
SNF referrals have been sent; [facility], [facility] is requesting additional therapy notes which are not available at this time. [facility] unable to offer a bed due pt not having out of network benefits.
SNF authorization will need to be obtained from [facility]. Authorization will be needed once facility has been selected.
CM to contact family to determine which facility they are more inclined to choose. I spoke with her Life Partner initially, however he asked that I contact Hermelinda's daughter to discuss. I spoke with Hermelinda and her daughter and [facility] is the
facility of choice.
I spoke with Kaylyn at [facility] who is willing to accept for transfer, and anticipates a bed available tomorrow.
CM to begin [facility] authorization for transfer to SNF.
[facility]
Accepting physician Martinez Escobedo
[2023-11-16] MEDS: LOVENOX 40 MG SC (16:52)
[2023-11-16 19:18] VITALS: BP 149/80
[2023-11-16 23:59] VITALS: BP 150/78
[2023-11-17] MEDS: ANCEF 10 IV ×3 (01:16→17:26)
[2023-11-17] MEDS: TYLENOL 650 MG PO ×3 (01:17→14:33)
[2023-11-17] MEDS: ATIVAN 0.5 MG PO (01:23)
[2023-11-17] MEDS: MOTRIN 400 MG PO ×2 (05:22→13:29)
[2023-11-17 07:19] VITALS: BP 146/78
[2023-11-17 07:46] LABS: Hematocrit 27.8 % (37.0-47.0); Hemoglobin 9.4 g/dL (12.0-16.0); Mean Corp Hgb Conc. 33.8 g/dL (33.0-37.0); Mean Corpuscular Hgb 30.4 pg (27.0-31.0); Mean Platelet Volume 9.8 fL (7.4-10.4); Platelet Count 378 10^3/uL (130-400); Red Blood Cell Count 3.09 10^6/uL (4.20-5.40); Red Cell Dist. Width 16.7 % (11.5-14.5); White Blood Cell Count 7.2 10^3/uL (4.8-10.8)
[2023-11-17 08:15] LABS: ALT (SGPT) 17 U/L (0-35); AST (SGOT) 33 U/L (14-36); Albumin 2.6 g/dl (3.5-5.0); Alkaline Phosphatase 244 U/L (38-126); Blood Urea Nitrogen 14 mg/dl (7-17); Carbon Dioxide 25 mmol/L (22-30); Chloride 107 mmol/L (98-107); Estimated Creatinine Clearance 66 ml/min; Glucose 97 mg/dl (70-99); Magnesium 1.5 mg/dl (1.6-2.3); Potassium 4.1 mmol/L (3.5-5.1); Sodium 143 mmol/L (135-145); Total Bilirubin 0.3 mg/dl (0.2-1.3); eGFR > 60.00
[2023-11-17] MEDS: BENICAR 40 MG PO (08:39)
[2023-11-17] MEDS: DESENEX/MITRAZOL/ZEASORB 1 APPLIC TOPICAL (08:40)
[2023-11-17] MEDS: PROTONIX 40 MG PO (08:40)
[2023-11-17] MEDS: CYMBALTA DELAYED RELEASE 60 MG PO (08:40)
[2023-11-17] MEDS: NORVASC 5 MG PO (08:40)
--- NOTE | 2023-11-17 12:25 | CM ---
Addendum entered by Lisa Doe 11/17/23 15:40:
Discharge time changed to 5:45 to accommodate completion of IV infusion. [facility] advised of same.
2nd IMM reviewed with Hermelinda and her daughter; original signed and placed on chart, copy provided.
Original Note:
SHAMAR met with Hermelinda's daughter, Oneida, to discuss discharge to [facility]. Daughter is aware of cost for w/c van transport and will call to provide payment information.
Kaylyn, compliance coordinator at [facility] will contact daughter via telephone to discuss paperwork and answer questions regarding what to bring for Hermelinda (clothes, personal items, etc.).
[facility] authorization approved 11/17/2023-11/23/2023; Certification Number [id number].
W/C van transport arranged for 5pm moss picker today from to [facility]F; $165.
Plan: Discharge to [facility] today at 5PM via w/c van.
[facility] Report: [phone]
[facility]
--- NOTE | 2023-11-17 12:51 | W.PN.HOSP.TC ---
Addendum entered and electronically signed by Connor Hazel MD 11/17/23 15:48:
[id number]
Addendum entered and electronically signed by Connor Hazel MD 11/17/23 15:45:
More than 30 minutes spent in discharge including
Final examination of the patient
Summarizing hospital stay
Instructions for continuing care to all relevant caregivers
Preparation of discharge records, prescriptions, and referral forms
Total time spent (34 in minutes):
Addendum entered and electronically signed by Connor Hazel MD 11/17/23 15:43:
HIDA negative, can dc with f/u with PCP/GI; f/u lfts outpatient
F/u PCP, GI outpatient
complete abx course with Keflex
Original Note:
Today's Communication/Plan
-
HIDA scan
electrolyte repletion
monitor lfts
Assessment / Plan
Assessment / Plan
HPI: 73-year-old with past medical history of asthma, hyperlipidemia, chronic pain presented to the emergency department after a prodromal gastrointestinal illness with altered mental status and hypotension. Also had urinary frequency. Patient was
found to have a positive UA and leukocytosis. She was hypotensive to 70 systolic.
A/P:
# Severe Sepsis POA likely 2/2 UTI
# Acute metabolic encephalopathy 2/2 UTI
BP responded to IVF
urine culture positive for E coli sensitivity reviewed. Deescalated ceftriaxone to Ancef with plan to DC on Keflex (Day 5 of 7)
Of note, CT head from admission showed No acute intracranial abnormality.
MS improved, off restraint. She is somewhat AOX3 but lacks insight
# KERRI likely prerenal, resolved
# anion gap Metabolic acidosis, resolved
Cr 3.4 on admission, today 0.9, unknown baseline but no known prior h/o CKD.
s/p IVF with bicarb
ok to resume gabapentin
Abd US: No hydronephrosis.
# RUQ tenderness with transaminitis
-RUQ unremarkable for acute pathology
-since high suspicion - ordered HIDA scan - read pending
-cont Tylenol PRN for pain
#Hypokalemia
repleted K
# Transaminitis
# H/O large liver hemangioma with chronic abdominal pain.
No known parenchymal liver disease
Abd US noted increased echogenicity in the liver, compatible with underlying hepatocellular disease, which most commonly relates to fatty infiltration of the liver. Family aware.
Follow LFT with PCP outpatient
HIDA scan as above du eto symptoms
# Recent Shingles
Rash resolved
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
DVT PPX - lovenox SQ
Code Status - Full Code
Dispo: SNF
DW RN
DW pt's daughter Oneida at bedside
Anticipated Discharge: Within 24 hours
Subjective/Interval History
-
Date of Service: November 17, 2023
no acute events
Objective Data
-
Labs:
Laboratory Results
11/17/23
06:39
WBC 7.2
Hgb 9.4 L
Hct 27.8 L
Plt Count 378
Sodium 143
Potassium 4.1
Chloride 107
Carbon Dioxide 25
BUN 14
Creatinine 0.8
Glucose 97
Calcium 9.0
Total Bilirubin 0.3
AST 33
ALT 17
Alkaline Phosphatase 244 H
Vital Signs:
Vital Signs
Temp Pulse Resp BP Pulse Ox
97.5 F 88 20 146/78 95
11/17/23 07:19 11/17/23 07:19 11/17/23 07:19 11/17/23 07:19 11/17/23 07:19
I&O
11/16/23 11/17/23 11/18/23
06:59 06:59 06:59
Intake Total 960 / 960 960 / 960
Balance 960 / 960 960 / 960
Review of Systems
-
History Source: Patient
All other systems: Not reviewed unless documented
Data Reviewed
-
Diagnostic Radiology: Image personally visualized and interpreted and Report Reviewed by me
Ultrasound: Image personally visualized and interpreted
Labs: Labs Reviewed by me
[2023-11-17] MEDS: MAGNESIUM SULFATE 100 IV (13:26)
[2023-11-17 15:01] VITALS: BMI 41.3
[2023-11-17 15:07] VITALS: BP 122/80
--- NOTE | 2023-11-17 15:42 | W.DS.TRANS ---
DC Summary - Supervisor Pressing Department
-
Discharge Instructions:
Discharge Diagnosis/Procedures Severe Sepsis POA likely 2/2 UTI
# Acute metabolic encephalopathy 2/2 UTI
Diet Low Fat,Low Cholesterol
Activity As tolerated
Blood Work LFTs within 3-5 days with PCP, magnesium in 3-5
days with pcp
Instructions:
Stand-Alone Forms:
Changes to Home Medications: Yes
Discharge Medications:
DC Medications w/original date entered in [facility]
albuterol sulfate 90 mcg/actuation aerosol inhaler 2 puff inhalation R Q6HPRN PRN sob 11/11/23
amlodipine 5 mg-olmesartan 40 mg tablet 1 tab PO DAILY Blood Pressure 11/11/23
duloxetine 60 mg capsule,delayed release 60 mg PO DAILY Mental Health/Anxiety 11/11/23
ezetimibe 10 mg tablet 10 mg PO DAILY High Cholesterol 11/11/23
gabapentin 300 mg capsule 300 mg PO TIDPRN PRN moderate pain 11/11/23
ibuprofen 200 mg capsule (Advil Liqui-Gel) 400 mg PO Q6HPRN PRN mild pain 11/11/23
lorazepam 0.5 mg tablet 0.5 mg PO BIDPRN PRN anxiety 11/11/23
omeprazole 20 mg capsule,delayed release 20 mg PO DAILY gerd 11/11/23
rosuvastatin 10 mg tablet 10 mg PO DAILY High Cholesterol 11/11/23
acetaminophen 325 mg tablet 650 mg (2 x 325 mg) PO Q4HPRN PRN YOUNGER/temp > 100.4 F #0 tabs 11/17/23
cephalexin 500 mg capsule 500 mg PO QID 3 days #12 caps 11/17/23
miconazole nitrate 2 % topical powder (Miconazorb AF) 1 applic topical BID #0 grams 11/17/23
Home Medication Changes
acetaminophen 325 mg tablet 650 mg (2 x 325 mg) PO Q4HPRN PRN YOUNGER/temp > 100.4 F #0 tabs 11/17/23
cephalexin 500 mg capsule 500 mg PO QID 3 days #12 caps 11/17/23
miconazole nitrate 2 % topical powder (Miconazorb AF) 1 applic topical BID #0 grams 11/17/23
Pending Results: No
[2023-11-17] MEDS: FLUAD (65 yr+) 2024-2025 FORMULA 0.5 ML IM (16:29)
[2023-11-17] MEDS: NEURONTIN 300 MG PO (16:45)
== END 2023-11-17 18:18 | DRG 871 ==
LOC: 4 EAST ACU 20:54
PROVIDERS: Internal Medicine; ADMITTING PHYSICIAN Internal Medicine; ATTENDING PHYSICIAN Internal Medicine; EMERGENCY PHYSICIAN Student in an Organized Health Care Education/Training Program
DX: A41.9 Sepsis, unspecified organism (principal); G93.41 Metabolic encephalopathy; N17.9 Acute kidney failure, unspecified; N39.0 Urinary tract infection, site not specified; E87.20 Acidosis, unspecified; Z68.41 Body mass index [BMI] 40.0-44.9, adult; Z87.891 Personal history of nicotine dependence; R65.20 Severe sepsis without septic shock; E87.6 Hypokalemia; E66.01 Morbid (severe) obesity due to excess calories
CPT/HCPCS: 70450; 74018; 76700; 78226; 80048; 80053; 81003; 81015; 82077; 82533; 82962; 83605; 83735; 84443; 85025; 85027; 86803; 87086; 87088; 87186; 87502; 87811; 90662; 96361; 96374; 96375; 97162; 97166; 97530; 99291; A9537; G0008; J7030

== ENCOUNTER → 2024-02-18 15:03 | Outpatient (REF) | payer MEDICARE, SELFPAY | LOC: HWRAD 15:03 | PROVIDERS: ATTENDING PHYSICIAN Family Medicine | DX: R06.02 Shortness of breath (principal) | CPT/HCPCS: 71046 ==

== ENCOUNTER → 2024-09-19 14:06 | Outpatient (REF) | payer MEDICARE, SELFPAY ==
[2024-09-19 14:55] LABS: Hematocrit 43.2 % (37.0-47.0); Hemoglobin 14.3 g/dL (12.0-16.0); Mean Corp Hgb Conc. 33.1 g/dL (33.0-37.0); Mean Corpuscular Volume 92.7 fL (81.0-99.0); Nucleated Red Blood Cells % 0 %; Platelet Count 273 10^3/uL (130-400); Red Cell Dist. Width 13.2 % (11.5-14.5)
[2024-09-19 15:00] LABS: ALT (SGPT) 16 U/L (0-35); AST (SGOT) 16 U/L (14-36); Albumin 4.1 g/dl (3.5-5.0); Alkaline Phosphatase 84 U/L (38-126); Blood Urea Nitrogen 23 mg/dl (7-17); Calcium 9.1 mg/dl (8.4-10.2); Carbon Dioxide 25 mmol/L (22-30); Chloride 103 mmol/L (98-107); Glucose 104 mg/dl (70-99); Potassium 4.1 mmol/L (3.5-5.1); Sodium 136 mmol/L (135-145); Total Protein 6.4 g/dl (6.3-8.2); eGFR 36.57
== END ==
LOC: REG 14:06
PROVIDERS: ATTENDING PHYSICIAN Family Medicine; OTHER PHYSICIAN Family Medicine
DX: E86.9 Volume depletion, unspecified (principal); K52.9 Noninfective gastroenteritis and colitis, unspecified
CPT/HCPCS: 36415; 80053; 85025

== ENCOUNTER 2024-09-20 03:40 | Inpatient (IN) | payer MEDICARE, SELFPAY ==
[2024-09-19 17:29] VITALS: BP 111/56
[2024-09-19 21:37] VITALS: BP 85/62
[2024-09-19 22:04] VITALS: BMI 37.1
[2024-09-19 22:08] VITALS: BP 92/63
[2024-09-19] MEDS: NSS 1000 IV (22:40)
--- NOTE | 2024-09-19 22:59 | ED.GENMED ---
History of Present Illness
General
Chief Complaint: Abnormal Lab Value
Source: patient and spouse
Time Seen by Provider: 09/19/24 22:27
History of Present Illness
History of Present Illness:
74-year-old female presents emergency department after first starting to feel unwell last week, estimated to be either or Thursday. She describes feeling more tired than usual and that she 'just did not feel good', although no specific pain.
Then, Thursday evening, she noted blood in her stool x 5 distinct episodes. Blood was noted to be bright red without clots, no black stool noted. She also had 1 episode of vomiting but no vomiting since and since then also denies nausea or
anorexia. She said that she is 'clumsy' and had a slip and fall on the rug, causing a chipped tooth and a bruise on her chin. She denies preceding symptoms to this such as lightheadedness, chest pain, dyspnea, etc. She continues to feel generally
just tired associated with episodes of lightheadedness (although this did not precede her fall), and since Thursday, mild discomfort in the left upper quadrant that persists. Patient started Zepbound approximately 3 weeks ago and feels that she is
tolerating it well. She does take 600 mg of Motrin twice daily, no increase or change in that dose, no other antiplatelet/anticoagulation medications. Patient saw her doctor today and was noted to be hypotensive, was referred for labs which she
was told were abnormal and therefore referred to the emergency department. She denies fever, chills, chest pain, cough or throat, rhinorrhea, urinary symptoms, or other complaints.
Past History
Past History
ED Past Medical History: HTN, Hypercholesterolemia, Other (Cervical cancer) and Other (Sciatica)
ED Past Surgical History: Gynecological
Social History
Tobacco: Former smoker
Alcohol: Occasional
Drug: None
Personal:
Living: with family
Phy Exam
Physical Exam
Physical Exam:
GENERAL: Alert , in no apparent distress
EYE: pupils equal and reactive, conjunctive a pink
NECK: Supple, no significant adenopathy.
ENT: o/p clr, mm slightly dry
CARDIAC: Regular rate and rhythm .
LUNGS: Clear breath sounds bilaterally, no acute respiratory distress, no wheezes/rales/rhonchi
ABDOMEN: Soft, very mild left upper quad l tenderness, no r/g, no cvat
NEUROLOGICAL: Alert and oriented, no focal neuro deficits
SKIN: Warm and dry, skin intact.
MUSCULOSKELETAL: No edema, well perfused.
PSYCH: Normal and appropriate interaction.
Rectal heme positive brown stool, MIHIR Mckoy present
Course
Orders/Labs/Results
Orders:
Orders
09/19/24 22:40
0.9% Sodium Chloride 1000 ml [Nss] 1,000 ml IV BOLUS
09/19/24 22:57
Electrocardiogram (*1) Urgent
Reason for Study: Other
Other Reason for Exam: sepsis
Cardiac Monitoring- Treatment ONCE
EKG- Treatment ONCE
Urinalysis Reflex To Culture Urgent
Date Specimen was Collected: 09/20/24
Time Specimen was Collected: 00:55
09/19/24 22:58
IV Insert/Care/Rem.- Treatment PRN
09/19/24 23:10
Type+Screen Urgent
Lactic Acid Q4H
Comment: CANCEL 2nd LACTIC ACID IF 1st LACTIC ACID IS LESS THAN 2
Troponin I Urgent
Blood Culture Q30M
HERMAN Source: Blood/Venous
Specimen Description:
Blood Culture Q30M
HERMAN Source: Blood/Venous
Specimen Description:
09/19/24 23:42
ABO2 Urgent
BBK Wristband Number:
Associate notified that ABO2 has been ordered: [id number]
Date: 09/19/24
Time: 23:42
Retaining Room Cutter ID: [id number]
09/20/24 00:14
0.9% Sodium Chloride 1000 ml [Nss] 1,000 ml IV BOLUS
Pantoprazole [Protonix IV] 40 mg IV NOW STA
09/20/24 00:58
CT Abd/pelvis Wo Iv Cont Urgent
Comment:
Reason For Exam: luq pain
Urine Microscopic Reflex Cult Urgent
Urine Culture Urgent
HERMAN Source: U
Specimen Description:
Date Specimen was Collected: 09/20/24
Time Specimen was Collected: 00:55
09/20/24 01:58
LevoFLOXacin 500 MG/100 ML [Levaquin] 500 mg in 100 ml IV NOW
MetroNIDAZOLE 500 MG/100 ML [Flagyl 500 mg] 100 ml IV NOW
09/20/24 03:10
Admit/Transfer Patient As Directed
Co-Sign Provider:
Level of Care: Inpatient admission
Assign to:: Telemetry
Physician / Group: Akira
Diagnosis: Colitis
Reason for Telemetry: Arrhythmia
Date to Stop Telemetry: 09/23/24
Time to Stop Telemetry: 11:00
Reason for Hospitalization: Colitis
Expected length of stay greater than two midnights?: Yes
ELOS- Estimated Length of Stay in days: 3
I certify the patient meets the requirements for IP care: Yes
PRN Pain Medication Management As Directed
May give lesser potent ordered pain med per pt: Yes
preference::
Protocol:: Medication orders for pain may be administered in a
manner that supports deferring to patient preference
when the pt is:
- Requesting an ordered lesser potent pain medication.
Least to most potent pain medications are defined
as: acetaminophen < NSAID < tramadol < opioids
(morphine, oxycodone, hydromorphone).
- Requesting a lesser dose of the same medication IF
ORDERED.
- Requesting a less intrusive route of administration
if both routes are prescribed by the provider (PO <
IV).
09/20/24 03:11
Code Status As Directed
Resuscitation Status: Full Code
09/20/24 04:22
0.9% Sodium Chloride [Nss (Preservative Free)] See Protocol IV PRN PRN
Acetaminophen [Tylenol] 650 mg PO Q4HPRN PRN
FOLic ACID [Folvite] 1 mg 0.9% Sodium Chloride 50 ml [Nss] 50 ml IV DAILYPRN
Lactated Ringers [Lr] 1,000 ml IV 125 mls/hr
Lorazepam [Ativan] 1 mg IV Q1HPRN PRN
Lorazepam [Ativan] 1 mg PO Q2HPRN PRN
Lorazepam [Ativan] 2 mg IV Q1HPRN PRN
Piperacillin/Tazo 3.375 Gram [Zosyn] 3.375 gram in 50 ml IV Q6H
09/20/24 04:22
Case Management Consult Once
Case Management Consult: Other
Comment: Substance abuse counseling
DIETARY IP CONSULT Routine
Reason for Consult: Nutrition support, possible refeeding guidelines
Stool Culture Urgent
HERMAN Source: Feces/Stool
Specimen Description:
Activity As Directed
Activity Level: Ambulate
With Assistance
I/O [Intake/ Output] As Directed
Frequency: Per unit guidelines
MSAS SCORE As Directed
MSAS Score 0-4: Repeat MSAS every 2 hours until 0-4 for three consecutive assessments, then every 4 hours x 48
hours.
MSAS Score 5-7: For MILD withdrawl symptoms. Repeat MSAS and RASS every 2 hours
MSAS Score 8-11: For MODERATE withdrawal symptoms. Repeat MSAS and RASS every 1 hour. Consider ICU or IMU
level of care.
MSAS Score > 11: For SEVERE withdrawal symptoms. Repeat MSAS and RASS every 1 hour. Notify provider, consider
ICU level of care.
MSAS Additional Instructions: If no improvement or no decrease in score from severe to moderate within 12
hours, consult psychiatry
MSAS Notify Provider: Notify provider if patient requires more than 10 mg of Lorazepam in eight hour period.
Orthostatic Vital Signs As Directed
Orthostatic VS Frequency: BID
Pneumatic Compression Sleeves As Directed
Type: Knee high
Vital Signs As Directed
Frequency: Per unit guidelines
Oxygen Therapy [O2 Therapy] [RESP] Routine
Titrate/Wean O2 to maintain O2 sat greater than (%): 94
DX Deep Vein Thrombosis Video Routine
09/20/24 05:39
Basic Metabolic Panel IN AM
Complete Blood Count/No Diff IN AM
ESR [Erythrocyte Sed Rate] Routine
09/20/24 Breakfast
Clear Liquid
At Your Request: Full Participation
09/20/24 08:00
FOLic ACID [Folvite] 1 mg PO DAILY
Fluoxetine HCl [Prozac] 40 mg PO DAILY
Pantoprazole [Protonix IV] 40 mg IV DAILY
Thiamine Injection 200 mg IV Q12
09/23/24 08:00
Thiamine HCl [Vitamin B1] 100 mg PO BID
09/23/24 11:00
DC Protocol for Telemetry ONCE
Abnormal Lab Results
09/20/24
00:58
Leukocyte Esterase Rfl 3+ A
(Negative)
Urine WBC (Reflex) >100 A /HPF
(0-5)
Urine Bacteria (Reflex) Many A
(Negative)
Vital Signs
Initial and Last Documented VS:
Initial Vital Signs
Temp Pulse Resp BP Pulse Ox
98.4 F 99 18 111/56 91
09/19/24 17:29 09/19/24 17:29 09/19/24 17:29 09/19/24 17:29 09/19/24 17:29
Last Documented Vital Signs
Temp Pulse Resp BP Pulse Ox
98.4 F 95 16 106/61 95
09/19/24 17:29 09/20/24 05:00 09/20/24 05:00 09/20/24 05:00 09/20/24 05:00
*Pulse Oximetry
SaO2: 97
Oxygen Mode of Delivery: Room air
Patient hypoxic: no
*Critical Care Note
Total Time (30-74mins, 75-104mins- exclusive of procedures): Not Applicable
Update Note
Update Note:
�
Patient presents to the Emergency Department with blood in stool, fatigue, leukocytosis, etc.
Number and Complexity of Problems Addressed at the Encounter
� Chronic conditions affecting care:
� Acute Exacerbation and/or Progression of Chronic Illness:
� Differential Diagnosis includes: But not limited to diverticulitis, diverticulosis, colon mass, medication reaction, sepsis, etc. etc.
Amount and/or Complexity of Data to be Reviewed and Analyzed
� I performed an independent evaluation of and my interpretation is:
EKG: Read by me, normal sinus rhythm, low voltage, no acute ischemia
CT: Vision read 'colonic wall thickening from the distal transverse colon through the proximal sigmoid colon compatible with colitis no bowel obstruction normal gallbladder and appendix diverticulosis no obstructive uropathy no
hepatic or pancreatic mass calcified lesion arising from the left hepatic edge unchanged since 01/25/2018. No abdominal aortic aneurysm no acute osseous abnormality no acute abnormality within the visualized lungs no acute abnormality within the
visualized soft tissues. ('
Xrays:
Laboratory Studies: Patient noted to have KERRI, leukocytosis, hemoglobin is stable
Other:
� Review of other/old records reveals:
� Clinical information was obtained by an independent historian: who is at bedside and offers further information regarding her medications
� Prescriptions/Medications Considered but not given:
� Further testing considered but not performed:
Risk of Complications and/or Morbidity or Mortality of Patient Management
� Social determinants of health affecting care:
� Discussion with other providers (PCP, Hospitalists, Consultants, etc):
� Escalation of care including admission/observation vs risk of discharge considered: Patient has not had further episodes of diarrhea or bleeding here. No rebound or guarding on repeat abdominal exam. Workup consistent with
colitis, most likely infectious, although ischemic also diagnostic possibility. Patient given IV fluids, antibiotics, PPI, will discuss with Dr. Chavez for admission and continued care.
ED Attending Note
-
Portions of this chart may have been created with voice recognition software.� Occasional wrong word or��sound alike� substitutions may have occurred due to the inherent limitations of voice recognition software.
Discharge Plan
Departure
Patient Disposition: Admit
Date of Disposition: 09/20/24
Time of Disposition: 01:59
Presentation/result/management discussed w/ accepting MD/DO: Hospitalist
Condition: Fair
Discharge Problem:
Colitis
Interventions
Interventions:
*Risk Screen - Suicide Last Done: 09/19/24 17:29
*General Assessment Last Done: 09/19/24 17:29
*Neglect/Abuse Screening Last Done: 09/19/24 22:04
*ED- Fall Risk Assessment Last Done: 09/19/24 22:04
*ED COVID-19 Vaccine History Last Done: 09/19/24 22:04
[2024-09-19 23:00] VITALS: BP 97/55
[2024-09-19 23:45] LABS: Troponin I < 0.012 ng/ml
[2024-09-19 23:55] VITALS: BP 103/56
[2024-09-20] VITALS (15 sets, daily range): BP systolic 90–111; BP diastolic 51–98; PULSE 85–89; BMI 37.1
[2024-09-20] MEDS: PROTONIX IV 40 MG IV ×2 (00:28→10:05)
[2024-09-20] MEDS: NSS 1000 IV (00:29)
[2024-09-20 01:15] LABS: Urine Character Clear (Clear)
[2024-09-20 01:28] LABS: Urine Squamous Cell >30 /LPF (Few); Urine Urothelial Cell >30 /LPF (FEW)
[2024-09-20 01:34] LABS: Urine Red Blood Cell 0-2 /HPF (0-2); Urine White Cell >100 /HPF (0-5)
[2024-09-20] MEDS: FLAGYL 500 MG 100 IV (02:09)
--- NOTE | 2024-09-20 03:14 | HPS.HSE ---
Family Physician
-
Family Physician: Isidro Manning
Chief Complaint
-
Abd pain, Bloody diarrhea
History of Present Illness
Patient is a 74y F with PMH significant for anxiety / depression and hypertension who presents to ED complaining of abdominal pain and bloody diarrhea. Patient states that she started with LLQ abdominal pain and bloody , loose stools on Thursday
evening. Her symptoms have persisted since that time. No fevers /chills. A single episode of N/V. She spoke with her PCP who sent her for outpatient labs. These showed significant leukocytosis and mild KERRI and patient was referred to the ED for
further evaluation. CT scan here in the ED shows colitis in the distal transverse / sigmoid colon.
Medical History
Past Medical History
Past Medical History: Reports Other
Additional Past Medical History:
Anxiety / Depression
Hypertension
Obesity
OAB
Cervical Cancer
Skin Cancer
Past Surgical History: Reports Other
Additional Past Surgical History:
D&C
Skin Cancer
Social History
Tobacco: Non-smoker
Alcohol: Daily (2-3 drinks daily.)
Drug: None
Family History
Family History: Not pertinent
Allergies / Home Medications
Allergies reflects when Allergies were last updated in [email or web address].
Home Medications with original date entered in [email or web address]
Allergy/Medication List:
Allergies
Allergy/AdvReac Type Severity Reaction Status Date / Time
No Known Allergies Allergy Verified 09/19/24 17:29
Home Medications
gabapentin 300 mg capsule 300 mg PO TIDPRN PRN moderate pain 11/11/23
atorvastatin 10 mg tablet 10 mg PO DAILY 09/20/24
fluoxetine 40 mg capsule 40 mg PO DAILY 09/20/24
lisinopril 40 mg tablet 40 mg PO DAILY 09/20/24
vibegron 75 mg tablet (Gemtesa) 75 mg PO DAILY 09/20/24
Review of Systems
-
History Source: Patient
Constitutional: Denies Fever or Chills
Respiratory: Denies Cough or Trouble Breathing
Cardiac: Denies Chest Pain or Palpitations
Abdomen/GI: Reports Abdominal Pain, Diarrhea and Bloody Stools; Denies Nausea or Vomiting
: Denies Dysuria or Frequency
Musculoskeletal: Denies Joint Pain or Edema
Neurological: Denies Dizzy or Headache
Physical Exam
Vital Signs
Vital Signs
Temp Pulse Resp BP Pulse Ox
98.4 F 86 15 104/62 94
09/19/24 17:29 09/20/24 03:00 09/20/24 03:00 09/20/24 02:00 09/20/24 03:00
Physical Exam
General: Other (74y F in no acute distress.)
HEENT: Moist mucous membranes and PERRLA
Respiratory: Clear; No Wheezes, Rales or Rhonchi
Cardiac: S1/S2 and Regular Rhythm; No Murmur
GI: Soft, Non Distended, Normal Bowel Sounds and Other (Pos LUQ tenderness without rebound or guarding.)
Musculoskeletal: No Clubbing, No Cyanosis and No Edema
Neuro: AO x 3
Laboratory Results
-
Laboratory Results
Lactic Acid Cancelled 09/20/24 03:00
Troponin I < 0.012 ng/ml 09/19/24 23:10
Impression/Plan
-
A/P: Patient is a 74y F with PMH significant for anxiety / depression and hypertension who presents to ED for evaluation of abdominal pain and bloody diarrhea.
Colitis
- Admit for further evaluation and treatment.
- CT scan shows colitis in the distal transverse colon and sigmoid colon.
- WBC = 19k. Afebrile. Lactate normal.
- Likely infectious colitis.
- IV abx with Zosyn pending stool culture data.
- Follow for fever, changes in WBC, improvement in symptoms, etc.
- IVFs, supportive care, etc.
KERRI
- SCr = 1.5 compared to known baseline of 0.8.
- Likely due to volume losses from diarrhea.
- IVF support and follow for improvement in renal function.
Benign Hypertension
- Hold BP medications acutely with borderline BP and KERRI.
Anxiety / Depression
- Stable. Continue fluoxetine.
Alcohol Use Disorder
- Patient reports 3 drinks per day on average.
- Follow MSAS during stay and PRN BZDs if needed.
Obesity due to excess calories
- Affects all aspects of care.
- Encourage health diet and increased exercise with goal of weight loss.
DVT Prophylaxis: SCDs
Code Status: Full
[2024-09-20] MEDS: LEVAQUIN 100 IV (03:18)
[2024-09-20] MEDS: LR 1000 IV ×2 (05:39→17:29)
[2024-09-20] MEDS: ZOSYN 50 IV ×4 (05:40→22:09)
[2024-09-20 05:53] LABS: Hematocrit 35.9 % (37.0-47.0); Hemoglobin 12.1 g/dL (12.0-16.0); Mean Corp Hgb Conc. 33.7 g/dL (33.0-37.0); Mean Corpuscular Volume 92.5 fL (81.0-99.0); Platelet Count 160 10^3/uL (130-400); Red Cell Dist. Width 13.2 % (11.5-14.5)
[2024-09-20 06:21] LABS: Blood Urea Nitrogen 20 mg/dl (7-17); Calcium 8.6 mg/dl (8.4-10.2); Carbon Dioxide 21 mmol/L (22-30); Chloride 110 mmol/L (98-107); Estimated Creatinine Clearance 44 ml/min; Glucose 84 mg/dl (70-99); Potassium 4.1 mmol/L (3.5-5.1); Sodium 139 mmol/L (135-145); eGFR 53.06
--- NOTE | 2024-09-20 07:59 | W.PN.HOSP.TC ---
Today's Communication/Plan
-
Continue Zosyn
Assessment / Plan
Assessment / Plan
Physical Exam
General: Not in acute distress
HEENT: Moist mucous membranes
Respiratory: Clear to Auscultation Bilaterally
Cardiac: S1/S2 and Regular Rhythm
GI: Soft, Non Distended, Normal Bowel Sounds. Mild tenderness on the left side.
Musculoskeletal: No Cyanosis and No Edema
Neuro: AO x 3
Assessment/Plan
74 y/o female with past medical history significant for anxiety / depression and hypertension who presents to [facility] ED complaining of abdominal pain and bloody diarrhea. Patient stated that she started with LLQ abdominal pain and bloody, loose
stools on the evening of 09/17/24. Her symptoms have persisted since that time. A single episode of N/V. She denied any fever or chills. She spoke with her PCP who sent her for outpatient labs. These showed significant leukocytosis and mild KERRI and
patient was referred to the [facility] ED for further evaluation. CT scan here in the ED shows colitis in the distal transverse / sigmoid colon.
Colitis -- extending from the distal transverse colon through the proximal sigmoid colon
Diverticulosis
- CT imaging showed colitis in the distal transverse colon and sigmoid colon.
- WBC = 19k. Afebrile. Lactate normal.
- Likely infectious colitis.
- IV abx with Zosyn pending stool culture data.
- Follow for fever, changes in WBC, improvement in symptoms, etc.
- IVFs, supportive care, etc.
- I discussed (not consulted) with Infectious Disease Dr. Wetzel, and if patient's stool studies and cultures negative, and patient continues to respond to Zosyn, then antibiotics are not needed on discharge (I clarified with her that even if bloody
diarrhea and suspected bacterial, okay to do Zosyn for 2 to 3 days here and if improving and if cultures negative, then no
antibiotics needed on discharge)
- Concern for possible ischemic cause of colitis -- appreciate colorectal surgeon input
KERRI
- SCr = 1.5-->1.1 compared to known baseline of 0.8.
- Likely due to volume losses from diarrhea and lack of PO intake for the few days prior to presentation.
- IVF support and follow for improvement in renal function.
Benign Hypertension
- Hold BP medications acutely with borderline BP and KERRI.
Anxiety / Depression
- Stable. Continue fluoxetine.
Alcohol Use Disorder
- Patient reports 2 drinks per day on average -- last drink was on 09/17/24
- Follow MSAS during stay and PRN BZDs if needed.
Obesity due to excess calories
- Affects all aspects of care.
- Encourage health diet and increased exercise with goal of weight loss.
DVT Prophylaxis: SCDs. Heparin subq.
Code Status: Full Code
Anticipated Discharge: 24 - 48 hours
Subjective/Interval History
-
Date of Service: September 20, 2024
Patient was seen and examined. She denied having any bowel movements since coming to the hospital. Her abdominal pain is better.
Objective Data
-
Labs:
Laboratory Results
09/20/24
05:39
WBC 13.2 H
Hgb 12.1
Hct 35.9 L
Plt Count 160 D
Sodium 139
Potassium 4.1
Chloride 110 H
Carbon Dioxide 21 L
BUN 20 H
Creatinine 1.1 H
Glucose 84
Calcium 8.6
Vital Signs:
Vital Signs
Temp Pulse Resp BP Pulse Ox
98.4 F 87 17 97/60 95
09/19/24 17:29 09/20/24 06:45 09/20/24 06:45 09/20/24 06:39 09/20/24 06:30
[2024-09-20 09:10] LABS: Albumin 3.4 g/dl (3.5-5.0)
[2024-09-20] MEDS: FOLVITE 1 MG PO (10:04)
[2024-09-20] MEDS: THIAMINE INJECTION 200 MG IV ×2 (10:05→20:36)
[2024-09-20] MEDS: PROZAC 40 MG PO (10:05)
--- NOTE | 2024-09-20 12:02 | CON.CRS ---
Consultation
-
Date/Time Consultation Requested: 09/20/2024,
Date/Time Consultation Performed: 09/20/2024,
Requesting Provider: Kurt Lopez MD
Performing Provider: Reji Castanon MD
Reason for Consultation: colitis
Medical History
-
Chief Complaint: bloody stools
History of Present Illness:
74-year-old female presents to [facility] emergency department early this morning complaining of bloody stools, vomiting, and diarrhea. She states she has some left lower quadrant abdominal pain as well but that is not what brought her into the
hospital. Initially her stools were completely bloody and then went from constipated to very loose. Denies fevers or chills. She did vomit once and it was nonbloody. She denies any recent travel or any raw fruits, vegetables,'s or meats. In the
ER her WBC was 19.2 and is 13.2 today. She remains afebrile and her vitals are normal. CT of the abdomen and pelvis shows colitis extending from the distal transverse colon to the proximal sigmoid colon. Denies a prior history of colitis in the
past. Her last colonoscopy was in [address] Guerra which showed one 5 mm polyp in the sigmoid colon. She did do Cologuard this year and was negative. Denies a family history of colitis, colon or rectal cancer. Given the above findings, we
have been consulted for surgical opinion.
Past Medical History
Past Medical History: HTN and Other (obesity, anxiety/depression, cervical cancer, skin cancer)
Past Surgical History: Gynecological (D+C)
Social History
Tobacco: Non-Smoker
Alcohol: Daily (2-3 drinks)
Drug: None
Family History
Family History: Reviewed & Not Pertinent
Allergies / Home Medications
Allergy/AdvReac Type Severity Reaction Status Date / Time
No Known Allergies Allergy Verified 09/19/24 17:29
�Medication �Instructions �Recorded �Confirmed �Type
gabapentin 300 mg capsule 300 mg PO HS 11/11/23 09/20/24 History
albuterol sulfate 90 mcg/actuation 2 puff inhalation R Q6HPRN PRN sob 09/20/24 09/20/24 History
aerosol inhaler
amlodipine 5 mg-olmesartan 40 mg 1 tab PO DAILY 09/20/24 09/20/24 History
tablet
bupropion HCl 150 mg 24 hr tablet, 150 mg PO DAILY 09/20/24 09/20/24 History
extended release (Wellbutrin XL)
cholecalciferol (vitamin D3) 25 25 mcg PO DAILY 09/20/24 09/20/24 History
mcg (1,000 unit) tablet (Vitamin
D3)
duloxetine 60 mg capsule,delayed 60 mg PO DAILY 09/20/24 09/20/24 History
release
estradiol 0.01% (0.1 mg/gram) 1 appful vaginal WEEKLY 09/20/24 09/20/24 History
vaginal cream (Estrace)
ezetimibe 10 mg tablet (Zetia) 10 mg PO DAILY 09/20/24 09/20/24 History
ibuprofen 600 mg tablet 600 mg PO BID 09/20/24 09/20/24 History
lorazepam 0.5 mg tablet 0.5 mg PO BID 09/20/24 09/20/24 History
vibegron 75 mg tablet (Gemtesa) 75 mg PO DAILY 09/20/24 09/20/24 History
Review of Systems
-
History Source: Patient
Abdomen/GI: Abdominal Pain, Vomiting, Diarrhea, Constipated and Bloody Stools
A 10 point review of systems was completed, and was negative except as per HPI.
Physical Exam
Vital Signs
Temp 98.4 F 09/19/24 17:29
Pulse 87 09/20/24 06:45
Resp Rate 17 09/20/24 06:45
Blood pressure 97/60 09/20/24 06:39
SaO2 95 09/20/24 06:30
09/19/24 09/20/24 09/21/24
06:59 06:59 06:59
Actual Weight 86.2 kg
Body Mass Index (BMI) 37.1
Lab Results / Allergies
09/20/24 05:39
09/20/24 05:39
WBC 13.2 10^3/uL (4.8-10.8) H 09/20/24 05:39
Hgb 12.1 g/dL (12.0-16.0) 09/20/24 05:39
Hct 35.9 % (37.0-47.0) L 09/20/24 05:39
Plt Count 160 10^3/uL (130-400) D 09/20/24 05:39
Allergy/AdvReac Type Severity Reaction Status Date / Time
No Known Allergies Allergy Verified 09/19/24 17:29
Physical Exam
General: Well Developed and Well Nourished
GI: Soft, Non Distended and Tender (LLQ- moderate)
Skin: Warm and Dry
Neuro: AO x 3
Data Reviewed
-
CT Scan: Image Personally Visualized and interpreted, Report Reviewed by me and Discussed with Patient
Labs: Labs Reviewed by me, Discussed with Physician and Discussed with Patient
Old Records: Reviewed
Assessment / Plan
-
Assessment: 74-year-old female with bloody diarrhea and vomiting with left lower quad abdominal pain found to have colitis extending the distal transverse colon to the proximal sigmoid colon, likely ischemic
Plan:
- Trend labs and vitals
- Okay for clear liquids today
- Continue IV antibiotics
- Continue IV fluids
- No plans for surgery at this time. Will follow.
--- NOTE | 2024-09-20 12:20 | CM ---
CM reviewed chart and met with pt bedside in ED. Lives with her in 2 story home, 3 SAMI. Has first floor half BA, second floor BR/full BA.
Independent in ADLs, personal care and ambulation at baseline. No assistive devices.
Pt states she has 1-2 drinks with dinner, declines [facility] referral at this time. Is aware she can speak to someone while she is admitted if she changes her mind.
[facility]
PCP: Isidro Manning
Pharmancy: [place], [place]
CM will continue to follow for all discharge planning needs.
--- NOTE | 2024-09-20 16:00 | PTCARENOTE ---
09/20- Patient transferred and oriented to unit without issue. AAOX3, Telemetry currently NSR. MSAS current score is 2. Denies any current complaints.
[2024-09-20] MEDS: CYMBALTA DELAYED RELEASE 60 MG PO (17:29)
[2024-09-20] MEDS: ZETIA 10 MG PO (17:34)
[2024-09-20] MEDS: ATIVAN 0.5 MG PO (20:35)
[2024-09-20] MEDS: HEPARIN 5000 UNITS SC (20:36)
[2024-09-20] MEDS: NEURONTIN 300 MG PO (22:09)
[2024-09-20] MEDS: LR IV (22:10)
[2024-09-20] MEDS: ROXICODONE 5 MG PO (22:32)
--- NOTE | 2024-09-20 22:34 | PTCARENOTE ---
Pt was asking for her ibuprofen. pt made aware that it is not ordered. Pt made aware that she has Tylenol ordered but she says it won't do anything for the pain. Abby PETERSON aware and ordered prn Oxycodone for pt. Pt was ok with order and
took a dose.
[2024-09-21] VITALS (7 sets, daily range): BP systolic 103–136; BP diastolic 60–81; PULSE 81–90
[2024-09-21] MEDS: ZOSYN 50 IV ×4 (04:09→21:45)
[2024-09-21] MEDS: LR 1000 IV ×2 (07:11→22:32)
[2024-09-21] MEDS: VITAMIN D3 (cholecalciferol) 25 MCG PO (07:12)
[2024-09-21] MEDS: PROZAC 40 MG PO (07:12)
[2024-09-21] MEDS: WELLBUTRIN XL (24 hour extended release) 150 MG PO (07:12)
[2024-09-21] MEDS: FOLVITE 1 MG PO (07:12)
[2024-09-21] MEDS: CYMBALTA DELAYED RELEASE 60 MG PO (07:12)
[2024-09-21] MEDS: ATIVAN 0.5 MG PO ×2 (07:12→20:19)
[2024-09-21] MEDS: ZETIA 10 MG PO (07:12)
[2024-09-21] MEDS: HEPARIN 5000 UNITS SC ×2 (07:14→20:19)
[2024-09-21] MEDS: THIAMINE INJECTION 200 MG IV ×2 (07:14→20:19)
[2024-09-21] MEDS: PROTONIX IV 40 MG IV (07:14)
--- NOTE | 2024-09-21 08:58 | W.PN.CRS1 ---
Today's Communication / Plan
-
fulls
continue abx
await stool cultures
Assessment/Plan
-
Assessment: 74-year-old female with bloody diarrhea and vomiting with left lower quad abdominal pain found to have colitis extending the distal transverse colon to the proximal sigmoid colon, likely ischemic
labs pending
vitals normal
Plan:
- Trend labs and vitals
- Doing better, advance to full liquids
- Continue IV antibiotics
- Continue IV fluids
- Stool cultures and c.diff pending
- No plans for surgery at this time. Will follow.
Subjective Data
Subjective Data
Date of Service: September 21, 2024
Patient states she feels much better. She had nausea after eating the clear liquid soup because 'it tasted bad'. Otherwise, she is feeling well. Denies any further nausea. She had one bowel movement x 1 that was not bloody. She has flatus.
Objective Data
-
Vital Signs
Temp Pulse Resp BP Pulse Ox
98 F 80 18 109/67 99
09/21/24 07:00 09/21/24 04:09 09/21/24 04:09 09/21/24 04:09 09/21/24 07:15
Intake & Output
09/20/24 09/21/24 09/22/24
06:59 06:59 06:59
Intake Total 1500 / 1500
Balance 1500 / 1500
Intake:
IV fluids (Total) 1300 / 1300
IV piggybacks 200 / 200
Other:
Number of approximated MODERATE 4
amounts of urine
Physical Exam
-
General: No Acute Distress and AOx3
Abdomen: Soft, Non Distended and Tender (mild llq)
Skin: Warm and Dry
[2024-09-21 09:26] LABS: Hematocrit 34.0 % (37.0-47.0); Hemoglobin 11.5 g/dL (12.0-16.0); Mean Corp Hgb Conc. 33.8 g/dL (33.0-37.0); Mean Corpuscular Volume 92.1 fL (81.0-99.0); Platelet Count 177 10^3/uL (130-400); Red Cell Dist. Width 13.1 % (11.5-14.5)
[2024-09-21 10:18] LABS: Blood Urea Nitrogen 7 mg/dl (7-17); Calcium 8.5 mg/dl (8.4-10.2); Carbon Dioxide 24 mmol/L (22-30); Chloride 110 mmol/L (98-107); Estimated Creatinine Clearance 49 ml/min; Glucose 87 mg/dl (70-99); Magnesium 1.9 mg/dl (1.6-2.3); Potassium 4.1 mmol/L (3.5-5.1); Sodium 139 mmol/L (135-145); eGFR 59.49
--- NOTE | 2024-09-21 11:12 | CM ---
CM reviewed chart, patient seen bedside. Patient remains on IV antibiotics. Denies needs upon discharge, confirms transportation home. CM will continue to follow for all discharge planning needs.
Plan; home no needs anticipated
--- NOTE | 2024-09-21 12:11 | W.PN.HOSP.TC ---
Today's Communication/Plan
-
See plan
Assessment / Plan
Assessment / Plan
Physical Exam
General: Not in acute distress
HEENT: Moist mucous membranes
Respiratory: Clear to Auscultation Bilaterally
Cardiac: S1/S2 and Regular Rhythm
GI: Soft, Non Distended, Normal Bowel Sounds. Mild tenderness on the left side.
Musculoskeletal: No Cyanosis and No Edema
Neuro: AO x 3
Assessment/Plan
74 y/o female with past medical history significant for anxiety / depression and hypertension who presents to [facility] ED complaining of abdominal pain and bloody diarrhea. Patient stated that she started with LLQ abdominal pain and bloody, loose
stools on the evening of 09/17/24. Her symptoms have persisted since that time. A single episode of N/V. She denied any fever or chills. She spoke with her PCP who sent her for outpatient labs. These showed significant leukocytosis and mild KERRI and
patient was referred to the [facility] ED for further evaluation. CT scan here in the ED shows colitis in the distal transverse / sigmoid colon.
Colitis -- extending from the distal transverse colon through the proximal sigmoid colon
Diverticulosis
Leukocytosis - RESOLVED
- CT imaging showed colitis in the distal transverse colon and sigmoid colon.
- WBC = 19k. Afebrile. Lactate normal.
- Suspected infectious versus ischemic colitis given location of colon involved.
- IV abx with Zosyn pending stool culture data.
- Follow for fever, changes in WBC, improvement in symptoms, etc.
- IVFs, supportive care, etc.
- I discussed (not consulted) with Infectious Disease Dr. Wetzel, and if patient's stool studies and cultures negative, and patient continues to respond to Zosyn, then antibiotics are not needed on discharge (I clarified with her that even if bloody
diarrhea and suspected bacterial, okay to do Zosyn for 2 to 3 days here and if improving and if cultures negative, then no
antibiotics needed on discharge)
- Concern for possible ischemic cause of colitis -- appreciate colorectal surgeon input
- Continue on Full Liquids for the rest of today -- if patient's bleeding continues, would make NPO and repeat HgB. Otherwise, continue Full Liquids for today, and then hopefully Low Residue diet tomorrow.
KERRI
- SCr = 1.5-->1.1-->1.0 compared to known baseline of 0.8.
- Likely due to volume losses from diarrhea and lack of PO intake for the few days prior to presentation.
- IVF support and follow for improvement in renal function.
Benign Hypertension
- Hold BP medications acutely with borderline BP and KERRI.
Anxiety / Depression
- Stable. Continue fluoxetine.
Alcohol Use Disorder
- Patient reports 2 drinks per day on average -- last drink was on 09/17/24
- Follow MSAS during stay and PRN BZDs if needed.
Obesity due to excess calories
- Affects all aspects of care.
- Encourage health diet and increased exercise with goal of weight loss.
DVT Prophylaxis: SCDs. Heparin subq.
Code Status: Full Code
Anticipated Discharge: 24 - 48 hours
Subjective/Interval History
-
Date of Service: September 21, 2024
Patient was seen and examined. She had a small amount of bloody stool this morning, she denied any abdominal pain or any other complaints.
Objective Data
-
Labs:
Laboratory Results
09/21/24
08:47
WBC 7.0
Hgb 11.5 L
Hct 34.0 L
Plt Count 177
Sodium 139
Potassium 4.1
Chloride 110 H
Carbon Dioxide 24
BUN 7
Creatinine 1.0
Glucose 87
Calcium 8.5
Vital Signs:
Vital Signs
Temp Pulse Resp BP Pulse Ox
98.4 F 85 16 117/71 97
09/21/24 11:32 09/21/24 11:32 09/21/24 11:32 09/21/24 11:32 09/21/24 11:32
I&O
09/20/24 09/21/24 09/22/24
06:59 06:59 06:59
Intake Total 1500 / 1500
Balance 1500 / 1500
[2024-09-21] MEDS: LR IV (15:44)
[2024-09-21] MEDS: ROXICODONE 5 MG PO ×2 (18:39→22:33)
[2024-09-21] MEDS: NEURONTIN 300 MG PO (21:45)
[2024-09-22 03:02] VITALS: BP 131/81
[2024-09-22] MEDS: ZOSYN 50 IV ×2 (04:02→10:14)
[2024-09-22 07:36] VITALS: BP 127/78
[2024-09-22] MEDS: LR 1000 IV (08:02)
[2024-09-22] MEDS: PROTONIX IV 40 MG IV (08:03)
[2024-09-22] MEDS: PROZAC 40 MG PO (08:04)
[2024-09-22 08:05] LABS: Hematocrit 35.2 % (37.0-47.0); Hemoglobin 12.0 g/dL (12.0-16.0); Mean Corp Hgb Conc. 34.1 g/dL (33.0-37.0); Mean Corpuscular Volume 91.7 fL (81.0-99.0); Platelet Count 210 10^3/uL (130-400); Red Cell Dist. Width 13.0 % (11.5-14.5)
[2024-09-22] MEDS: CYMBALTA DELAYED RELEASE 60 MG PO (08:05)
[2024-09-22] MEDS: FOLVITE 1 MG PO (08:05)
[2024-09-22] MEDS: ZETIA 10 MG PO (08:05)
[2024-09-22] MEDS: WELLBUTRIN XL (24 hour extended release) 150 MG PO (08:05)
[2024-09-22] MEDS: ATIVAN 0.5 MG PO (08:05)
[2024-09-22] MEDS: VITAMIN D3 (cholecalciferol) 25 MCG PO (08:06)
[2024-09-22] MEDS: THIAMINE INJECTION 200 MG IV (08:07)
[2024-09-22] MEDS: HEPARIN 5000 UNITS SC (08:09)
[2024-09-22 08:37] LABS: Blood Urea Nitrogen 5 mg/dl (7-17); Calcium 9.1 mg/dl (8.4-10.2); Carbon Dioxide 27 mmol/L (22-30); Chloride 107 mmol/L (98-107); Estimated Creatinine Clearance 49 ml/min; Glucose 87 mg/dl (70-99); Potassium 4.0 mmol/L (3.5-5.1); Sodium 140 mmol/L (135-145); eGFR 59.49
--- NOTE | 2024-09-22 08:44 | W.PN.CRS1 ---
Today's Communication / Plan
-
As below
Assessment/Plan
-
74-year-old female with bloody diarrhea and vomiting with left lower quad abdominal pain found to have colitis extending the distal transverse colon to the proximal sigmoid colon, likely ischemic
AFVSS
WBC 6.4 from 7.0 Hb 12.0 from 11.5, CR 1.0
�Advance to low fiber diet
� Continue DVT PPx with SQH
� Continue pain control with Tylenol and oxycodone as needed
� Continue home meds
� Continue IV Zosyn; okay to switch to p.o. on discharge, recommend 10-14-day course total
� Appreciate hospitalist; okay for discharge this evening if tolerating solid food; follow-up with Dr. Castanon in 2-4 weeks
Subjective Data
Subjective Data
Date of Service: September 22, 2024
No overnight events.
Pain essentially resolved
Denies nausea/vomiting. Tolerating diet.
+flatus +BMs (yesterday, had small BM with spotting of blood, no BMs since) +voiding
Pt is OOB.
Objective Data
-
Vital Signs
Temp Pulse Resp BP Pulse Ox
98.6 F 82 16 127/78 94
09/22/24 07:36 09/22/24 07:36 09/22/24 07:36 09/22/24 07:36 09/22/24 07:36
Intake & Output
09/21/24 09/22/24 09/23/24
06:59 06:59 06:59
Intake Total 1500 / 1500 1779
Balance 1500 / 1500 1779
Intake:
Oral fluids 480 / 480
IV fluids (Total) 1300 / 1300 1200 / 1200
IV piggybacks 200 / 200 100 / 100
Other:
Number of approximated MODERATE 4
amounts of urine
Number of approximated LARGE 2
amounts of urine
Lab Results
09/22/24 07:36
09/22/24 07:36
Physical Exam
-
General: No Acute Distress and AOx3
HEENT: Grossly Normal
Abdomen: Soft, Non Distended, Non Tender, No Guarding and No Rebound
Skin: Warm and Dry
[2024-09-22 11:37] VITALS: BP 115/67; BP 131/72; BP 133/77; PULSE 80; PULSE 82; PULSE 83
--- NOTE | 2024-09-22 13:53 | W.PN.HOSP.TC ---
Addendum entered and electronically signed by Kurt Rodas MD 09/25/24 09:41:
Colitis, Suspected Acute
Original Note:
Today's Communication/Plan
-
Discharge today; I spoke to the patient today and after I discussed discharge plan with her, patient says she is agreeable to discharge today.
Assessment / Plan
Assessment / Plan
Physical Exam
General: Not in acute distress
HEENT: Moist mucous membranes
Respiratory: Clear to Auscultation Bilaterally
Cardiac: S1/S2 and Regular Rhythm
GI: Soft, Non Distended, Normal Bowel Sounds. Nontender.
Musculoskeletal: No Cyanosis and No Edema
Neuro: AO x 3
Assessment/Plan
74 y/o female with past medical history significant for anxiety / depression and hypertension who presents to [facility] ED complaining of abdominal pain and bloody diarrhea. Patient stated that she started with LLQ abdominal pain and bloody, loose
stools on the evening of 09/17/24. Her symptoms have persisted since that time. A single episode of N/V. She denied any fever or chills. She spoke with her PCP who sent her for outpatient labs. These showed significant leukocytosis and mild KERRI and
patient was referred to the [facility] ED for further evaluation. CT scan here in the ED shows colitis in the distal transverse / sigmoid colon.
Colitis -- extending from the distal transverse colon through the proximal sigmoid colon
Diverticulosis
Leukocytosis - RESOLVED
- CT imaging showed colitis in the distal transverse colon and sigmoid colon.
- Remains Afebrile. Lactate normal.
- Suspected infectious versus ischemic colitis given location of colon involved.
- IV abx with Zosyn -- I confirmed on 09/22/[address] [place] [facility] [address] John Holt (colorectal surgeon) that patient can be discharged on Augmentin 875 mg BID for 10 to 14 total days of antibiotics
- Follow for fever, changes in WBC, improvement in symptoms, etc.
- IVFs, supportive care, etc.
- I discussed (not consulted) with Infectious Disease Dr. Wetzel, and if patient's stool studies and cultures negative, and patient continues to respond to Zosyn, then antibiotics are not needed on discharge (I clarified with her that even if bloody
diarrhea and suspected bacterial, okay to do Zosyn for 2 to 3 days here and if improving and if cultures negative, then no
antibiotics needed on discharge)
- Concern for possible ischemic cause of colitis -- appreciate colorectal surgeon input
- Okay for discharge this evening if tolerating solid food; follow-up with Dr. Castanon in 2-4 weeks
KERRI
- SCr = 1.5-->1.1-->1.0 compared to known baseline of 0.8.
- Likely due to volume losses from diarrhea and lack of PO intake for the few days prior to presentation.
- IVF support was given and follow for improvement in renal function.
Benign Hypertension
- Hold BP medications acutely with borderline BP and KERIR.
Anxiety / Depression
- Stable. Continue fluoxetine.
Alcohol Use Disorder
- Patient reports 2 drinks per day on average -- last drink was on 09/17/24
- Follow MSAS during stay and PRN BZDs if needed.
Obesity due to excess calories
- Affects all aspects of care.
- Encourage health diet and increased exercise with goal of weight loss.
DVT Prophylaxis: SCDs. Heparin subq.
Code Status: Full Code
More than 30 minutes spent in discharge including
Final examination of the patient
Summarizing hospital stay
Instructions for continuing care to all relevant caregivers
Preparation of discharge records, prescriptions, and referral forms
Total time spent (in minutes): 37
Anticipated Discharge: Today
Subjective/Interval History
-
Date of Service: September 22, 2024
Patient was seen and examined. She reported no bowel movement overnight. She has tolerated her liquids diet well. She denied abdominal pain or any other complaints.
Objective Data
-
Labs:
Laboratory Results
09/22/24
07:36
WBC 6.4
Hgb 12.0
Hct 35.2 L
Plt Count 210
Sodium 140
Potassium 4.0
Chloride 107
Carbon Dioxide 27
BUN 5 L
Creatinine 1.0
Glucose 87
Calcium 9.1
Vital Signs:
Vital Signs
Temp Pulse Resp BP Pulse Ox
98.1 F 80 16 131/72 97
09/22/24 11:37 09/22/24 11:37 09/22/24 11:37 09/22/24 11:37 09/22/24 11:37
I&O
09/21/24 09/22/24 09/23/24
06:59 06:59 06:59
Intake Total 1500 / 1500 1779
Balance 1500 / 1500 1779
[2024-09-22] MEDS: ZOSYN IV (15:19)
[2024-09-22 15:26] VITALS: BP 114/77
--- NOTE | 2024-09-22 15:49 | W.DCSUMMARY ---
Discharge Summary
Discharge Data
Date of Admission: 09/20/24
Date of Discharge: 09/22/24
Total time spent discharging patient (in min): 37
-
Pending Results: Yes
Additional Pending Results:
Microbiology results
Hospital Course
74 y/o female with past medical history of hypertension, obesity, anxiety/depression, cervical cancer and skin cancer, presented reporting bloody stools, vomiting and diarrhea. Patient was started on Zosyn antibiotics. CT of the abdomen and pelvis
showed colitis extending from the distal transverse colon to the proximal sigmoid colon. Colorectal surgery was consulted given concern for ischemic colitis. Patient's diet was able to be advanced from clear liquids diet to full liquids diet.
Patient had acute kidney injury (suspected from patient's diarrhea, poor oral intake, hypotension and hypovolemia in the days leading up to presentation) when she presented to the hospital, and this resolved with intravenous fluids. Patient was
hypotensive earlier in the hospitalization, but this resolved with intravenous fluids. Patient's abdominal pain resolved, she denied nausea/vomiting, she was tolerating her diet well. After discussion with colorectal surgeon, it was determined that
patient can be discharged with Augmentin and follow-up outpatient.
Discharge Plan
-
Patient Disposition: Home (Routine Discharge)
Discharge Diagnosis/Procedures: Colitis -- extending from the distal transverse colon through the proximal sigmoid colon
Diverticulosis
Leukocytosis - RESOLVED
Acute Kidney Injury - RESOLVED
Hypertension
Anxiety / Depression
Alcohol Use Disorder
Obesity due to excess calories

CT Abdomen Pelvis (as per radiologist's report):
'Procedure: CT abdomen and pelvis without IV contrast. No oral contrast.
INDICATION: Left upper quadrant pain. Abnormal laboratory values.
COMPARISON: 01/25/2018.
FINDINGS:
Lung bases: Unremarkable.
ABDOMEN:
Liver: Normal in size. As before, extending to the left from the left lateral margin of the lateral segment of the left lobe, there is a stable exophytic low-attenuation mass measuring 2.7 cm with incomplete peripheral calcification. Internal CT
density measurement consistent with fluid.
Gallbladder: Unremarkable.
Bild duct: Top normal given patient age, 8.6 mm.
Pancreas: Unremarkable unenhanced appearance.
Spleen: Normal in size.
Adrenal glands: No mass.
Kidneys:
Right Kidney: No renal or ureteral calculus. No obstructive uropathy.
Left Kidney: No renal or ureteral calculus. No obstructive uropathy.
Peritoneum: No upper abdominal ascites. No focal collection or abscess. No free air.
Retroperitoneum: No aortic aneurysm. No mass or adenopathy.
Bowel: Mild to moderate circumferential wall thickening is demonstrated involving the colon extending from the distal transverse colon through the proximal sigmoid colon. No evidence of pneumatosis. There is mild associated pericolonic soft tissue
stranding. Findings consistent with colitis.
There is mild sigmoid diverticulosis, and minor scattered diverticula of the remaining colon, without evidence of acute diverticulitis.
No evidence of bowel obstruction.
Appendix: Normal.
Anterior abdominal wall: No hernia.
Pelvis:
No ascites or inflammatory soft tissue stranding. No adenopathy. A few tiny phlebolith calcifications are noted. No bladder calculus. The uterus and adnexal regions are unremarkable.
Osseous review:
Left scoliosis. No compression deformity. The disc spaces are relatively well-maintained. Multilevel mild to moderate bilateral facet arthrosis.
IMPRESSION:
Colitis extending from the distal transverse colon through the proximal sigmoid colon. No evidence of pneumatosis.
Diverticulosis without acute diverticulitis.
No bowel obstruction.
No obstructive uropathy.'
Condition: Good
Diet: Low Residue
Activity: As tolerated
Activity Restrictions/Additional Instructions:
Return right away to the emergency room if you develop any new or worsening symptoms.
Instructions: Amoxicillin and Clavulanate
Referrals:
Reji Castanon MD [Active, ColoRectal] - in two weeks
Isidro Manning MD [Family Provider, Family Practice] - in less than 1 week
Referral Note: Hospitalization Follow-Up
Additional Discharge Medication Instructions: Your Amlodipine-Olmesartan is being held since you recovered from kidney injury and low blood pressure this hospitalization -- review your discharge paperwork with your primary care provider and ask them
when you can resume this medication.
Amoxicillin-Clavulanate, Folic Acid and Thiamine are new medications.
Prescriptions:
New
folic acid 1 mg Tablet
1 mg PO DAILY Qty: 7 0RF
amoxicillin-pot clavulanate 875-125 mg tablet
1 tab PO Q12H 8 Days Qty: 16 0RF
thiamine mononitrate (vit B1) 100 mg Tablet
100 mg PO DAILY Qty: 14 0RF
Continued
gabapentin 300 mg Capsule
300 mg PO HS
Gemtesa 75 mg Tablet
75 mg PO DAILY
lorazepam 0.5 mg Tablet
0.5 mg PO BID
estradiol [Estrace] 0.01 % (0.1 mg/gram) Cream
1 appful VAGINAL WEEKLY
albuterol sulfate 90 mcg/actuation Hfa Aerosol Inhaler
2 puff INHALATION R Q6HPRN PRN (Reason: sob)
ezetimibe [Zetia] 10 mg Tablet
10 mg PO DAILY
bupropion HCl [Wellbutrin XL] 150 mg Tablet Extended Release 24 Hr
150 mg PO DAILY
duloxetine 60 mg Capsule,Delayed Release(Dr/Ec)
60 mg PO DAILY
cholecalciferol (vitamin D3) [Vitamin D3] 25 mcg (1,000 unit) Tablet
25 mcg PO DAILY
Held
amlodipine-olmesartan 5-40 mg Tablet
1 tab PO DAILY
Hold Instructions: Resume on 09/26/24. Ask your primary care provider when you should resume this medication. This was held because of low blood pressure during your hospitalization.
Discontinued
ibuprofen [Motrin] 600 mg Tablet
600 mg PO BID
Discharge Orders:
Discharge Patient (As Directed); Ordered 09/22/24
Ordered By: Kurt Rodas
Discharge Date and Time
Discharge Date/Time: 09/22/24 17:25
Print Language: EQUATORIAL GUINEAN
--- NOTE | 2024-09-23 10:07 | PN.CDI ---
CDI
- -
CDI:
Physician Documentation Request
Admit Date: 09/20/24 03:40
Dear Doctor Adrianna,
Patient admitted for management of colitis. Progress notes states 'Suspected infectious versus ischemic colitis given location of colon involved.'
Please clarify which of the following accurately represents the acuity of the colitis.
____ Acute
Chronic
____ Other
Use of terms such as suspected, likely, concern for, or probable (associated with a specific diagnosis that is being evaluated, monitored, or treated as if it exists) are acceptable and can be coded in the inpatient setting, when documented at the
time of discharge.
Thank you,
Urmila Cole RN, BSN
CDI Specialist
tiger text
Please use your independent medical judgment in providing your response.
== END 2024-09-22 17:25 | disposition home or self-care (01) | DRG 391 ==
LOC: 4 WEST ACU 03:40
PROVIDERS: ADMITTING PHYSICIAN Hospitalist; ATTENDING PHYSICIAN Hospitalist; CONSULT PHYSICIAN Surgery; EMERGENCY PHYSICIAN Emergency Medicine; FAMILY PHYSICIAN Family Medicine
DX: A09 Infectious gastroenteritis and colitis, unspecified (principal); K55.039 Acute (reversible) ischemia of large intestine, extent unspecified; N17.9 Acute kidney failure, unspecified; F41.9 Anxiety disorder, unspecified; F32.A Depression, unspecified; I10 Essential (primary) hypertension; F10.10 Alcohol abuse, uncomplicated; E66.09 Other obesity due to excess calories; M41.9 Scoliosis, unspecified; K57.30 Diverticulosis of large intestine without perforation or abscess without bleeding; E86.1 Hypovolemia; N32.81 Overactive bladder; Z68.37 Body mass index [BMI] 37.0-37.9, adult; Z79.899 Other long term (current) drug therapy; Z87.891 Personal history of nicotine dependence
CPT/HCPCS: 74176; 80048; 81003; 81015; 82040; 83605; 83735; 84484; 85027; 85652; 86850; 86900; 86901; 87040; 87045; 87046; 87086; 87324; 87427; 87449; 89055; 93005

== ENCOUNTER → 2024-10-20 10:22 | Outpatient (REF) | payer MEDICARE, SELFPAY ==
[2024-10-20 10:43] LABS: Hematocrit 44.4 % (37.0-47.0); Hemoglobin 15.0 g/dL (12.0-16.0); Mean Corp Hgb Conc. 33.8 g/dL (33.0-37.0); Mean Corpuscular Volume 90.4 fL (81.0-99.0); Nucleated Red Blood Cells % 0 %; Platelet Count 260 10^3/uL (130-400); Red Cell Dist. Width 12.9 % (11.5-14.5)
[2024-10-20 11:10] LABS: ALT (SGPT) 20 U/L (0-35); AST (SGOT) 20 U/L (14-36); Albumin 4.1 g/dl (3.5-5.0); Alkaline Phosphatase 88 U/L (38-126); Blood Urea Nitrogen 32 mg/dl (7-17); Calcium 9.4 mg/dl (8.4-10.2); Carbon Dioxide 22 mmol/L (22-30); Chloride 102 mmol/L (98-107); Glucose 115 mg/dl (70-99); Lipase 81 U/L (23-300); Potassium 4.0 mmol/L (3.5-5.1); Sodium 135 mmol/L (135-145); Total Protein 6.4 g/dl (6.3-8.2); eGFR 36.57
== END ==
LOC: REG 10:22
PROVIDERS: ATTENDING PHYSICIAN Family Medicine
DX: R10.0 Acute abdomen (principal)
CPT/HCPCS: 36415; 80053; 83690; 85025

== ENCOUNTER → 2025-01-19 10:49 | Outpatient (REF) | payer MEDICARE, SELFPAY | LOC: HWRAD 10:49 | PROVIDERS: ATTENDING PHYSICIAN Family Medicine | DX: R41.3 Other amnesia (principal) | CPT/HCPCS: 70450 ==